=== PATIENT | female | born 1990 | race Caucasian/White ===

== ENCOUNTER 2016-05-26 02:12 | Day surgery (SDC) | payer MEDICAID ==
[2016-05-26] MEDS ORDERED: HYDROmorphone 1 MG/ML Syringe IVPUSH ONE ×2 (03:22→06:53)
[2016-05-26] MEDS ORDERED: Ondansetron 4 MG/2 ML SDV IVPUSH ONE (03:22)
[2016-05-26] MEDS ORDERED: Sodium Chloride 0.9% 1,000 ML IV SCH (03:30)
--- NOTE | 2016-05-26 03:30 | EDM.PDOC ---
ED HPI GI/ABDOMINAL - General Chief Complaint: Gastrointestinal Problem Stated Complaint: UPPER ABDOMINAL BULGE/PAINFUL Time Seen by Provider: 05/26/16 02:35 Source of Information: Reports: Patient, Family (Mother), RN notes reviewed History Limitations: Reports: No limitations - History of Present Illness INITIAL COMMENTS - FREE TEXT/NARRATIVE: The patient states that she developed a "bump" in her upper midline abdomen about 1.5 years ago. She saw an ER physician in [facility] around November 2014. No tests were done, but the patient was told that so long as she was able to push it down, not to worry. Today the patient was unable to push the bump down, and it is painful. No recent fever, nausea, vomiting, constipation, diarrhea, or urinary symptoms. The patient states that she cannot be . The patient does not have a PCP. Her last oral solid food was around 02:00 this AM. Her last oral liquid was also around 02:00. - Related Data Allergies/ADRs: Allergies Allergy/AdvReac Type Severity Reaction Status Date / Time No Known Allergies Allergy Verified 05/26/16 02:28 Home Meds: Home Meds . [No Known Home Meds] 05/26/16 [History] Past Medical History - Past Surgical History HEENT Surgical History: Reports: Oral surgery (Hir[place] teeth extraction) Social & Family History - Family History Family Medical History: Noncontributory - Tobacco Use Smoking Status *Q: Current Every Day Smoker Years of Tobacco use: 11 Packs/Tins Daily: 0.2 Packs/Tins Daily Comment: Down from 1 ppd - Alcohol Use Alcohol Use History: Yes Alcohol Use Frequency: Socially - Recreational Drug Use Recreational Drug Use: No - Living Situation & Occupation Living situation: Reports: single, with family (Son, parents) 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) ED ROS GENERAL - Review of Systems Review Of Systems: See Below Constitutional: Reports: no symptoms HEENT: Reports: No symptoms Respiratory: Reports: No Symptoms Cardiovascular: Reports: No symptoms Endocrine: Reports: no symptoms GI/Abdominal: Reports: No symptoms : Reports: no symptoms Musculoskeletal: Reports: no symptoms Skin: Reports: no symptoms Neurological: Reports: No Symptoms Psychiatric: Reports: No symptoms Hematologic/Lymphatic: Reports: no symptoms Immunologic: Reports: no symptoms ED EXAM, GI/ABD - Physical Exam Exam: See Below Exam Limited By: No limitations General Appearance: alert, WD/WN, no apparent distress Eyes: bilateral: normal appearance, EOMI Ears: normal external exam, hearing grossly normal Nose: normal inspection, no blood Throat/Mouth: Normal inspection, Normal lips, Normal voice, No airway compromise Head: atraumatic, normocephalic Neck: normal inspection, full range of motion Respiratory/Chest: no respiratory distress, lungs clear, normal breath sounds, no accessory muscle use Cardiovascular: normal peripheral pulses, regular rate, rhythm, no edema, no gallop, no JVD, no murmur, no rub GI/Abdominal: normal bowel sounds, soft, no organomegaly, no distention, no abnormal bruit, no mass, hernia (Ventral hernia about mcfp between the umbilicus and the xiphoid process. Tender to palpation, and I am unable to reduce it.) (Female) Exam: Deferred Rectal (Female) Exam: Deferred Back Exam: normal inspection, full range of motion, NT Extremities: normal inspection, normal range of motion, no pedal edema, normal capillary refill Neurological: alert, oriented, normal cognition, no motor/sensory deficits Psychiatric: normal affect Skin Exam: Warm, Dry, Intact, Normal color, No rash Lymphatic: no adenopathy Course - Vital Signs Last Recorded V/S: Last Vital Signs Temp 36.2 C 05/26/16 02:23 Pulse 91 05/26/16 02:23 Resp 16 05/26/16 02:23 BP 109/75 05/26/16 02:23 Pulse Ox 99 05/26/16 02:23 - Orders/Labs/Meds Orders: Active Orders 24 hr Category Date Time Status Sodium Chloride 0.9% [Normal Saline] 1,000 ml Med 05/26/16 03:30 Active IV ASDIRECTED Medication Orders Sodium Chloride (Normal Saline) 1,000 mls @ 150 mls/hr IV ASDIRECTED REJI Last Admin: 05/26/16 03:34 Dose: 150 mls/hr Labs: Laboratory Tests 05/26/16 05/26/16 05/26/16 Range/Units 03:35 03:35 04:35 WBC 9.94 (3.98-10.04) K/mm3 RBC 4.20 (3.98-5.22) M/mm3 Hgb 12.9 (11.2-15.7) gm/L Hct 37.8 (34.1-44.9) % MCV 90.0 (79.4-94.8) fl MCH 30.7 (25.6-32.2) pg MCHC 34.1 (32.2-35.5) g/dl RDW Std Deviation 43.5 (36.4-46.3) fL Plt Count 227 (182-369) K/mm3 MPV 11.2 (9.4-12.3) fl Neutrophils % (Manual) 40 (40-60) % Band Neutrophils % 0 (0-10) % Lymphocytes % (Manual) 46 H (20-40) % Atypical Lymphs % 0 % Monocytes % (Manual) 11 H (2-10) % Eosinophils % (Manual) 2 (0.7-5.8) % Basophils % (Manual) 1 (0.1-1.2) Platelet Estimate Adequate Plt Morphology Comment Normal RBC Morph Comment Normal Sodium 141 (136-145) mEq/L Potassium 3.6 (3.5-5.1) mEq/L Chloride 106 (98-107) mEq/L Carbon Dioxide 24 (21-32) mEq/L Anion Gap 14.6 (5-15) BUN 13 (7-18) mg/dL Creatinine 0.7 (0.55-1.02) mg/dL Est Cr Clr Drug Dosing 110.55 mL/min Estimated GFR (MDRD) > 60 (>60) mL/min BUN/Creatinine Ratio 18.6 H (14-18) Glucose 98 (74-106) mg/dL Calcium 8.6 (8.5-10.1) mg/dL Total Bilirubin 0.2 (0.2-1.0) mg/dL AST 11 L (15-37) U/L ALT 22 (14-59) U/L Alkaline Phosphatase 74 (46-116) U/L Total Protein 6.8 (6.4-8.2) g/dl Albumin 3.8 (3.4-5.0) g/dl Globulin 3.0 gm/dL Albumin/Globulin Ratio 1.3 (1-2) Lipase 463 H (73-393) U/L Urine Color (Yellow) Urine Appearance (Clear) Urine pH (5.0-8.0) Ur Specific [place] (1.005-1.030) Urine Protein (Negative) Urine Glucose (UA) (Negative) Urine Ketones (Negative) Urine Occult Blood (Negative) Urine Nitrite (Negative) Urine Bilirubin (Negative) Urine Urobilinogen (0.2-1.0) Ur Leukocyte Esterase (Negative) Urine RBC (0-5) /hpf Urine WBC (0-5) /hpf Ur Epithelial Cells (0-5) /hpf Amorphous Sediment (NOT SEEN) /hpf Urine Bacteria (FEW) /hpf Urine Mucus (FEW) /hpf Urine HCG, Qual Negative (NEGATIVE) 05/26/16 Range/Units 04:35 WBC (3.98-10.04) K/mm3 RBC (3.98-5.22) M/mm3 Hgb (11.2-15.7) gm/L Hct (34.1-44.9) % MCV (79.4-94.8) fl MCH (25.6-32.2) pg MCHC (32.2-35.5) g/dl RDW Std Deviation (36.4-46.3) fL Plt Count (182-369) K/mm3 MPV (9.4-12.3) fl Neutrophils % (Manual) (40-60) % Band Neutrophils % (0-10) % Lymphocytes % (Manual) (20-40) % Atypical Lymphs % % Monocytes % (Manual) (2-10) % Eosinophils % (Manual) (0.7-5.8) % Basophils % (Manual) (0.1-1.2) Platelet Estimate Plt Morphology Comment RBC Morph Comment Sodium (136-145) mEq/L Potassium (3.5-5.1) mEq/L Chloride (98-107) mEq/L Carbon Dioxide (21-32) mEq/L Anion Gap (5-15) BUN (7-18) mg/dL Creatinine (0.55-1.02) mg/dL Est Cr Clr Drug Dosing mL/min Estimated GFR (MDRD) (>60) mL/min BUN/Creatinine Ratio (14-18) Glucose (74-106) mg/dL Calcium (8.5-10.1) mg/dL Total Bilirubin (0.2-1.0) mg/dL AST (15-37) U/L ALT (14-59) U/L Alkaline Phosphatase (46-116) U/L Total Protein (6.4-8.2) g/dl Albumin (3.4-5.0) g/dl Globulin gm/dL Albumin/Globulin Ratio (1-2) Lipase (73-393) U/L Urine Color Yellow (Yellow) Urine Appearance Clear (Clear) Urine pH 6.5 (5.0-8.0) Ur Specific [place] > or = 1.030 (1.005-1.030) Urine Protein Negative (Negative) Urine Glucose (UA) Negative (Negative) Urine Ketones Negative (Negative) Urine Occult Blood 2+ H (Negative) Urine Nitrite Negative (Negative) Urine Bilirubin Negative (Negative) Urine Urobilinogen 0.2 (0.2-1.0) Ur Leukocyte Esterase Negative (Negative) Urine RBC 5-10 H (0-5) /hpf Urine WBC 0-5 (0-5) /hpf Ur Epithelial Cells 0-5 (0-5) /hpf Amorphous Sediment Many H (NOT SEEN) /hpf Urine Bacteria Few (FEW) /hpf Urine Mucus Few (FEW) /hpf Urine HCG, Qual (NEGATIVE) Meds: Medications Generic Name Dose Route Start Last Admin Trade Name Freq PRN Reason Stop Dose Admin Sodium Chloride 1,000 mls @ 150 mls/hr 05/26/16 03:30 05/26/16 03:34 Normal Saline IV 150 mls/hr ASDIRECTED REJI Administration Discontinued Medications Generic Name Dose Route Start Last Admin Trade Name Freq PRN Reason Stop Dose Admin Diatrizoate Meglum/Diatrizoate Sod 90 ml 05/26/16 06:04 05/26/16 06:05 Gastrografin 37% PO 05/26/16 06:05 90 ml ONETIME ONE Administration Hydromorphone HCl 1 mg 05/26/16 03:22 05/26/16 03:34 Dilaudid IVPUSH 05/26/16 03:23 1 mg ONETIME ONE Administration Iopamidol 100 ml 05/26/16 06:04 05/26/16 06:05 Isovue-300 (61%) IVPUSH 05/26/16 06:05 100 ml ONETIME ONE Administration Ondansetron HCl 4 mg 05/26/16 03:22 05/26/16 03:34 Zofran IVPUSH 05/26/16 03:23 4 mg ONETIME ONE Administration - Radiology Interpretation Free Text/Narrative:: CT of the abdomen and pelvis with oral and IV contrast is read by Dr. Rodriguez as: 1. Small anterior abdominal wall hernia at the level of the lower liver. This contains fat with mild increased density being seen in this area suspicious for mild incarceration of the fat resulting in mild inflammatory change. 2. Other normal findings as described above. - Re-Assessments/Exams Free Text/Narrative Re-Assessment/Exam: 05/26/16 06:[address] Avila at 06:35. She will come by the ED to evaluate the patient, with a plan of taking the patient to the operating room later today for herniorrhaphy. 05/26/16 06:42 The above was discussed with the patient and her mother. They are agreeable to going to the operating room. Departure - Departure Time of Disposition: 06:46 Disposition: DC/Tfer to [facility] Condition: fair Clinical Impression: Incarcerated ventral hernia - My Orders Last 24 Hours: My Active Orders 05/26/16 03:30 Sodium Chloride 0.9% [Normal Saline] 1,000 ml IV ASDIRECTED - Assessment/Plan Last 24 Hours: My Active Orders 05/26/16 03:30 Sodium Chloride 0.9% [Normal Saline] 1,000 ml IV ASDIRECTED
[2016-05-26] MEDS ORDERED: Iopamidol 612 MG/ML 100 ML Bottle IVPUSH ONE (06:04)
[2016-05-26] MEDS ORDERED: Diatrizoate Meglumine/Diatrizoate Sodium 37% 120 ML Bottle PO ONE (06:04)
--- NOTE | 2016-05-26 06:18 | CT ---
CT abdomen and pelvis Technique: Multiple axial sections were obtained from above the dome of the diaphragm inferiorly through the pubic symphysis. Intravenous and oral contrast was utilized. Delayed images were also obtained through the abdomen and pelvis. Comparison: No previous abdominal imaging. Findings: Small anterior abdominal wall hernia is identified at the level of the lower liver. This hernia opening measures approximately 6 mm and contains fat. Mild increased density is noted within the subcutaneous fat in the area of the hernia raising the possibility of mild incarceration of fat causing inflammatory change. No bowel is seen within or next to this hernia. Visualized lung bases are clear. Liver shows no focal parenchymal abnormality. Spleen appears within normal limits. Adrenal glands show no nodule. Kidneys show symmetric contrast enhancement without hydronephrosis or mass. Pancreas appears within normal limits. Gallbladder shows no calcified gallstones. Aorta shows no aneurysmal dilatation. No retroperitoneal adenopathy or mesenteric abnormalities are seen. No pelvic mass or adenopathy is seen. Delayed images shows contrast within the ureters and bladder. No bowel dilatation is seen. No free fluid is identified. Bone window settings were reviewed which appear within normal limits for the patient's age. Impression: 1. Small anterior abdominal wall hernia at the level of the lower liver. This contains fat with mild increased density being seen in this area suspicious for mild incarceration of the fat resulting in mild inflammatory change. 2. Other normal findings as described above. Diagnostic code #3
--- NOTE | 2016-05-26 08:02 | PCM.CONS ---
H&P History of Present Illness - General Date of Service: 05/26/16 Admit Problem/Dx: Admission Diagnosis/Problem Admission Diagnosis/Problem Hernia of anterior abdominal wall Source of Information: Patient History Limitations: Reports: No limitations - History of Present Illness Initial Comments - Free Text/Narative: 25 year old female with incarcerated epigastric hernia referred by Dr. Gonsales at [facility] ED. Presented this morning to ED at 0235, with a painful epigastric hernia. Reports she last ate at 2 AM, lasting to [address] of abdomen showed small anterior abdominal wall hernia the level of the lower liver. This contained fat with mild increase density being seen in the area suspicious for mild incarceration of fat resulting in mild inflammatory change.CBC within acceptable limits. CMP within acceptable limits. Lipase elevated at 463. UA showed occult blood and RBC. Urine HCG was negative. Patient reports she has had the hernia for 1.5 years. She reported it to an ED provider in [place] and told she could monitor. She reports she did not have an incident that precipitated noting the hernia initially. She would note it "pop" out during periods of stress. It was not painful up until yesterday. She reports she pulled something heavy yesterday, noted a lump that was firm and painful. She reports she tried laying down, she tried rubbing it and is heard. She reports that nothing seemed to help with the pain. She noted that the only position that was actually comfortable was when she was driving to the emergency department. She had some nausea due to the pain. She denies any vomiting, constipation, diarrhea, obstipation, or skin changes overlying the hernia. She denies any family history of colon cancer in first or second-degree relatives. She reports that her family members do have a history of several different types of cancer. She's never had a colonoscopy or EGD. She reports that the hernia was the size of the mouse or bouncy ball when she arrived to the emergency room. She reports that there was an attempt to reduce the hernia which was quite painful for her and she reports that in the size is actually significantly decreased from her initial arrival to the emergency department. She has had pain medication and this has helped somewhat with pain. Symptom Onset Date: 05/25/16 Duration of Symptoms: Reports: Constant Location: Reports: abdomen Middle Abdomen Pain Score (Numeric/FACES): 3 - Related Data Allergies/Adverse Reactions: Allergies Allergy/AdvReac Type Severity Reaction Status Date / Time No Known Allergies Allergy Verified 05/26/16 02:28 Home Medications: Home Meds . [No Known Home Meds] 05/26/16 [History] Past Medical History - Past Health History Medical/Surgical History: Denies Medical/Surgical History Genitourinary History: Reports: UTI, recurrent Other OB/BYN History: Right breast lipoma evaluated in [facility] - Past Surgical History HEENT Surgical History: Reports: Oral surgery ([place] teeth extraction) Social & Family History - Family History Other Family History: Mother: Sleep apnea, thyroid disease, hypertension Father: Hernia Sister: Anxiety Son: Gastroischesis, WPW, yeast infection from central line, sepsis from central line, blood transfusion, blood clot at site of PICC line Maternal grandmother colon Escherichia coli, rheumatoid arthritis - Tobacco Use Smoking Status *Q: Current Every Day Smoker Years of Tobacco use: 11 Packs/Tins Daily: 0.2 - Recreational Drug Use Recreational Drug Use: No - Living Situation & Occupation Living situation: Reports: single, with family (Son, parents) 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 Denies: chest pain, palpitations, dyspnea on exertion, orthopnea, PND, edema, lightheadedness, claudication Gastrointestinal: Reports: Abdominal pain (epigastric; see hpi), Nausea. Denies : Anorexia, Black stool, Bloody stool, Constipation, Diarrhea, Distension, Hematochezia, Melena, Vomiting Genitourinary: Reports: no symptoms Musculoskeletal: Reports: no symptoms Skin: Reports: no symptoms, other (multiple nevi; nevi to back was told to watch ; this has changed ) Psychiatric: Reports: no symptoms Neurological: Reports: No Symptoms, Other (reports when she lays down she has noted hand and feet numbness lately). Denies: Dizziness, Headache Hematologic/Lymphatic: Reports: no symptoms. Denies: anemia, easy bleeding, easy bruising Immunologic: Reports: no symptoms Exam - Exam Exam: See Below - Vital Signs Vital Signs: Last Vital Signs Temp 97.2 F 05/26/16 02:23 Pulse 91 05/26/16 02:23 Resp 16 05/26/16 02:23 BP 109/75 05/26/16 02:23 Pulse Ox 99 05/26/16 02:23 Weight: 61.235 kg - Exam General: alert, oriented, cooperative. No: mild distress HEENT: Conjunctiva clear, Hearing intact, Mucosa moist & pink Neck: supple Lungs: Clear to auscultation, Normal respiratory effort Cardiovascular: regular rate, regular rhythm, normal S1, normal S2. No: systolic murmur, diastolic murmur Abdomen: normal bowel sounds, soft, guarding, tenderness, hernia (epigastric 2- 3 cm in size, very tender to light touch, reduction not attempted due to pain and prior reduction attempted per ED staff. NO overylying skin change. Hernia is semi-firm. ). No: distention Back Exam: normal inspection Extremities: normal inspection, normal pulses. No: clubbing, cyanosis, calf tenderness, edema Skin: warm, dry, intact (muliple nevi to back and chest wall; left upper back > 5mm brown nevus, raised with irregular border. ) Neurological: normal speech. No: focal deficit Neuro Extensive - Mental Status: alert, oriented x3, normal mood/affect, normal cognition, memory intact Psychiatric: alert, normal affect, normal mood - Patient Data Lab Results last 24 hrs: Laboratory Results - last 24 hr 05/26/16 05/26/16 05/26/16 Range/Units 03:35 03:35 04:35 WBC 9.94 (3.98-10.04) K/mm3 RBC 4.20 (3.98-5.22) M/mm3 Hgb 12.9 (11.2-15.7) gm/L Hct 37.8 (34.1-44.9) % MCV 90.0 (79.4-94.8) fl MCH 30.7 (25.6-32.2) pg MCHC 34.1 (32.2-35.5) g/dl RDW Std Deviation 43.5 (36.4-46.3) fL Plt Count 227 (182-369) K/mm3 MPV 11.2 (9.4-12.3) fl Neutrophils % (Manual) 40 (40-60) % Band Neutrophils % 0 (0-10) % Lymphocytes % (Manual) 46 H (20-40) % Atypical Lymphs % 0 % Monocytes % (Manual) 11 H (2-10) % Eosinophils % (Manual) 2 (0.7-5.8) % Basophils % (Manual) 1 (0.1-1.2) Platelet Estimate Adequate Plt Morphology Comment Normal RBC Morph Comment Normal Sodium 141 (136-145) mEq/L Potassium 3.6 (3.5-5.1) mEq/L Chloride 106 (98-107) mEq/L Carbon Dioxide 24 (21-32) mEq/L Anion Gap 14.6 (5-15) BUN 13 (7-18) mg/dL Creatinine 0.7 (0.55-1.02) mg/dL Est Cr Clr Drug Dosing 110.55 mL/min Estimated GFR (MDRD) > 60 (>60) mL/min BUN/Creatinine Ratio 18.6 H (14-18) Glucose 98 (74-106) mg/dL Calcium 8.6 (8.5-10.1) mg/dL Total Bilirubin 0.2 (0.2-1.0) mg/dL AST 11 L (15-37) U/L ALT 22 (14-59) U/L Alkaline Phosphatase 74 (46-116) U/L Total Protein 6.8 (6.4-8.2) g/dl Albumin 3.8 (3.4-5.0) g/dl Globulin 3.0 gm/dL Albumin/Globulin Ratio 1.3 (1-2) Lipase 463 H (73-393) U/L Urine Color (Yellow) Urine Appearance (Clear) Urine pH (5.0-8.0) Ur Specific [place] (1.005-1.030) Urine Protein (Negative) Urine Glucose (UA) (Negative) Urine Ketones (Negative) Urine Occult Blood (Negative) Urine Nitrite (Negative) Urine Bilirubin (Negative) Urine Urobilinogen (0.2-1.0) Ur Leukocyte Esterase (Negative) Urine RBC (0-5) /hpf Urine WBC (0-5) /hpf Ur Epithelial Cells (0-5) /hpf Amorphous Sediment (NOT SEEN) /hpf Urine Bacteria (FEW) /hpf Urine Mucus (FEW) /hpf Urine HCG, Qual Negative (NEGATIVE) 05/26/16 Range/Units 04:35 WBC (3.98-10.04) K/mm3 RBC (3.98-5.22) M/mm3 Hgb (11.2-15.7) gm/L Hct (34.1-44.9) % MCV (79.4-94.8) fl MCH (25.6-32.2) pg MCHC (32.2-35.5) g/dl RDW Std Deviation (36.4-46.3) fL Plt Count (182-369) K/mm3 MPV (9.4-12.3) fl Neutrophils % (Manual) (40-60) % Band Neutrophils % (0-10) % Lymphocytes % (Manual) (20-40) % Atypical Lymphs % % Monocytes % (Manual) (2-10) % Eosinophils % (Manual) (0.7-5.8) % Basophils % (Manual) (0.1-1.2) Platelet Estimate Plt Morphology Comment RBC Morph Comment Sodium (136-145) mEq/L Potassium (3.5-5.1) mEq/L Chloride (98-107) mEq/L Carbon Dioxide (21-32) mEq/L Anion Gap (5-15) BUN (7-18) mg/dL Creatinine (0.55-1.02) mg/dL Est Cr Clr Drug Dosing mL/min Estimated GFR (MDRD) (>60) mL/min BUN/Creatinine Ratio (14-18) Glucose (74-106) mg/dL Calcium (8.5-10.1) mg/dL Total Bilirubin (0.2-1.0) mg/dL AST (15-37) U/L ALT (14-59) U/L Alkaline Phosphatase (46-116) U/L Total Protein (6.4-8.2) g/dl Albumin (3.4-5.0) g/dl Globulin gm/dL Albumin/Globulin Ratio (1-2) Lipase (73-393) U/L Urine Color Yellow (Yellow) Urine Appearance Clear (Clear) Urine pH 6.5 (5.0-8.0) Ur Specific [place] > or = 1.030 (1.005-1.030) Urine Protein Negative (Negative) Urine Glucose (UA) Negative (Negative) Urine Ketones Negative (Negative) Urine Occult Blood 2+ H (Negative) Urine Nitrite Negative (Negative) Urine Bilirubin Negative (Negative) Urine Urobilinogen 0.2 (0.2-1.0) Ur Leukocyte Esterase Negative (Negative) Urine RBC 5-10 H (0-5) /hpf Urine WBC 0-5 (0-5) /hpf Ur Epithelial Cells 0-5 (0-5) /hpf Amorphous Sediment Many H (NOT SEEN) /hpf Urine Bacteria Few (FEW) /hpf Urine Mucus Few (FEW) /hpf Urine HCG, Qual (NEGATIVE) Result Diagrams: 05/26/16 03:35 05/26/16 03:35 Consult PN Assessment/Plan Problem List Initiated/Reviewed/Updated: Yes Plan: 25 year old female with incarcerated epigastric hernia, need for open primary epigastric hernia repair. We discussed open primary epigastric hernia repair. We reviewed risks of the procedure including pain, bleeding, need for additional procedures, damage to surrounding structures, hernia recurrence, mesh or incisional infection, damage to other intra-abdominal structures. We also reviewed the signs and symptoms of incarceration and strangulation of hernias to be watchful for. Post-operative instructions of no lifting greater than 10 pounds for 6 weeks was reviewed. Informed consent was obtained. This patient was evaluated with Dr. Rachel Avila. Plan formulated above. Serina Harris NP scribing for Dr. Rachel Avila
--- NOTE | 2016-05-26 08:10 | PCM.PREANE ---
Preanesthetic Assessment - Physical Assessment O2 Sat by Pulse Oximetry: 99 Respiratory Rate: 16 Vital Signs: Last Vital Signs Temp 36.2 C 05/26/16 02:23 Pulse 91 05/26/16 02:23 Resp 16 05/26/16 02:23 BP 109/75 05/26/16 02:23 Pulse Ox 99 05/26/16 02:23 Height: 1.65 m Weight: 61.235 kg - Lab Values: Laboratory Last Values WBC 9.94 K/mm3 (3.98-10.04) 05/26/16 03:35 RBC 4.20 M/mm3 (3.98-5.22) 05/26/16 03:35 Hgb 12.9 gm/L (11.2-15.7) 05/26/16 03:35 Hct 37.8 % (34.1-44.9) 05/26/16 03:35 MCV 90.0 fl (79.4-94.8) 05/26/16 03:35 MCH 30.7 pg (25.6-32.2) 05/26/16 03:35 MCHC 34.1 g/dl (32.2-35.5) 05/26/16 03:35 RDW Std Deviation 43.5 fL (36.4-46.3) 05/26/16 03:35 Plt Count 227 K/mm3 (182-369) 05/26/16 03:35 MPV 11.2 fl (9.4-12.3) 05/26/16 03:35 Neutrophils % (Manual) 40 % (40-60) 05/26/16 03:35 Band Neutrophils % 0 % (0-10) 05/26/16 03:35 Lymphocytes % (Manual) 46 % (20-40) H 05/26/16 03:35 Atypical Lymphs % 0 % 05/26/16 03:35 Monocytes % (Manual) 11 % (2-10) H 05/26/16 03:35 Eosinophils % (Manual) 2 % (0.7-5.8) 05/26/16 03:35 Basophils % (Manual) 1 (0.1-1.2) 05/26/16 03:35 Platelet Estimate Adequate 05/26/16 03:35 Plt Morphology Comment Normal 05/26/16 03:35 RBC Morph Comment Normal 05/26/16 03:35 Sodium 141 mEq/L (136-145) 05/26/16 03:35 Potassium 3.6 mEq/L (3.5-5.1) 05/26/16 03:35 Chloride 106 mEq/L (98-107) 05/26/16 03:35 Carbon Dioxide 24 mEq/L (21-32) 05/26/16 03:35 Anion Gap 14.6 (5-15) 05/26/16 03:35 BUN 13 mg/dL (7-18) 05/26/16 03:35 Creatinine 0.7 mg/dL (0.55-1.02) 05/26/16 03:35 Est Cr Clr Drug Dosing 110.55 mL/min 05/26/16 03:35 Estimated GFR (MDRD) > 60 mL/min (>60) 05/26/16 03:35 BUN/Creatinine Ratio 18.6 (14-18) H 05/26/16 03:35 Glucose 98 mg/dL (74-106) 05/26/16 03:35 Calcium 8.6 mg/dL (8.5-10.1) 05/26/16 03:35 Total Bilirubin 0.2 mg/dL (0.2-1.0) 05/26/16 03:35 AST 11 U/L (15-37) L 05/26/16 03:35 ALT 22 U/L (14-59) 05/26/16 03:35 Alkaline Phosphatase 74 U/L (46-116) 05/26/16 03:35 Total Protein 6.8 g/dl (6.4-8.2) 05/26/16 03:35 Albumin 3.8 g/dl (3.4-5.0) 05/26/16 03:35 Globulin 3.0 gm/dL 05/26/16 03:35 Albumin/Globulin Ratio 1.3 (1-2) 05/26/16 03:35 Lipase 463 U/L (73-393) H 05/26/16 03:35 Urine Color Yellow (Yellow) 05/26/16 04:35 Urine Appearance Clear (Clear) 05/26/16 04:35 Urine pH 6.5 (5.0-8.0) 05/26/16 04:35 Ur Specific [place] > or = 1.030 (1.005-1.030) 05/26/16 04:35 Urine Protein Negative (Negative) 05/26/16 04:35 Urine Glucose (UA) Negative (Negative) 05/26/16 04:35 Urine Ketones Negative (Negative) 05/26/16 04:35 Urine Occult Blood 2+ (Negative) H 05/26/16 04:35 Urine Nitrite Negative (Negative) 05/26/16 04:35 Urine Bilirubin Negative (Negative) 05/26/16 04:35 Urine Urobilinogen 0.2 (0.2-1.0) 05/26/16 04:35 Ur Leukocyte Esterase Negative (Negative) 05/26/16 04:35 Urine RBC 5-10 /hpf (0-5) H 05/26/16 04:35 Urine WBC 0-5 /hpf (0-5) 05/26/16 04:35 Ur Epithelial Cells 0-5 /hpf (0-5) 05/26/16 04:35 Amorphous Sediment Many /hpf (NOT SEEN) H 05/26/16 04:35 Urine Bacteria Few /hpf (FEW) 05/26/16 04:35 Urine Mucus Few /hpf (FEW) 05/26/16 04:35 Urine HCG, Qual Negative (NEGATIVE) 05/26/16 04:35 - Allergies Allergies/Adverse Reactions: Allergies Allergy/AdvReac Type Severity Reaction Status Date / Time No Known Allergies Allergy Verified 05/26/16 02:28 PreAnesthesia Questionnaire - Past Health History Medical/Surgical History: Denies Medical/Surgical History Genitourinary History: Reports: UTI, recurrent - Past Surgical History HEENT Surgical History: Reports: Oral surgery ([place] teeth extraction) - SUBSTANCE USE Smoking Status *Q: Current Every Day Smoker (3-4 cigs/day for 11 years) Tobacco Use Within Last Twelve Months: Cigarettes Second Hand Smoke Exposure: No Recreational Drug Use History: No - HOME MEDS Home Medications: Home Meds . [No Known Home Meds] 05/26/16 [History] - CURRENT (IN HOUSE) MEDS Current Meds: Current Medications Sodium Chloride (Normal Saline) 1,000 mls @ 150 mls/hr IV ASDIRECTED REJI Last Admin: 05/26/16 03:34 Dose: 150 mls/hr Discontinued Medications Diatrizoate Meglum/Diatrizoate Sod (Gastrografin 37%) 90 ml PO ONETIME ONE Stop: 05/26/16 06:05 Last Admin: 05/26/16 06:05 Dose: 90 ml Hydromorphone HCl (Dilaudid) 1 mg IVPUSH ONETIME ONE Stop: 05/26/16 03:23 Last Admin: 05/26/16 03:34 Dose: 1 mg Hydromorphone HCl (Dilaudid) 1 mg IVPUSH ONETIME ONE Stop: 05/26/16 06:54 Last Admin: 05/26/16 07:02 Dose: 1 mg Iopamidol (Isovue-300 (61%)) 100 ml IVPUSH ONETIME ONE Stop: 05/26/16 06:05 Last Admin: 05/26/16 06:05 Dose: 100 ml Ondansetron HCl (Zofran) 4 mg IVPUSH ONETIME ONE Stop: 05/26/16 03:23 Last Admin: 05/26/16 03:34 Dose: 4 mg Preanesthetic Assessment - ANESTHESIA/TRANSFUSION/FAMILY HX Anesthesia/Transfusion History: No Prior Transfusion(s), Prior Anesthesia ( wisdom teeth extraction- tolerated well) Type of Anesthesia Reaction: Reports: Unknown Family History of Anesthesia Reaction: No Intubation History: Unknown Type of Transfusion Reactions: Reports: Unknown - REVIEW OF SYSTEMS Constitutional: Reports: no symptoms SHOWER ATTENDANT: Reports: no symptoms Respiratory: Reports: no symptoms Cardiovascular: Reports: no symptoms GI: Reports: no symptoms Other: Reports: Easy Bruising, Depression (not currently taking medication now) , Anxiety - PHYSICAL ASSESSMENT O2 Sat by Pulse Oximetry: 99 RR: 16 Vital Signs: Last Vital Signs Temp 36.2 C 05/26/16 02:23 Pulse 91 05/26/16 02:23 Resp 16 05/26/16 02:23 BP 109/75 05/26/16 02:23 Pulse Ox 99 05/26/16 02:23 Height: 1.65 m Weight: 61.235 kg NPO Status Date: 05/26/16 NPO Status Time: 02:00 ASA Class: 2E Mental Status: Alert & Oriented x3 Airway Class: Mallampati = 1 Dentition: Reports: Normal Dentition Thyro-Mental Finger Breadths: 3 Mouth Opening Finger Breadths: 3 ROM/Head Extension: Full Respiratory Status: lungs clear to auscultation bilaterally Cardiovascular Status: regular rate & rhythm, normal S1, S2, no murmur, blood pressure WNL - LAB Values: Laboratory Last Values WBC 9.94 K/mm3 (3.98-10.04) 05/26/16 03:35 RBC 4.20 M/mm3 (3.98-5.22) 05/26/16 03:35 Hgb 12.9 gm/L (11.2-15.7) 05/26/16 03:35 Hct 37.8 % (34.1-44.9) 05/26/16 03:35 MCV 90.0 fl (79.4-94.8) 05/26/16 03:35 MCH 30.7 pg (25.6-32.2) 05/26/16 03:35 MCHC 34.1 g/dl (32.2-35.5) 05/26/16 03:35 RDW Std Deviation 43.5 fL (36.4-46.3) 05/26/16 03:35 Plt Count 227 K/mm3 (182-369) 05/26/16 03:35 MPV 11.2 fl (9.4-12.3) 05/26/16 03:35 Neutrophils % (Manual) 40 % (40-60) 05/26/16 03:35 Band Neutrophils % 0 % (0-10) 05/26/16 03:35 Lymphocytes % (Manual) 46 % (20-40) H 05/26/16 03:35 Atypical Lymphs % 0 % 05/26/16 03:35 Monocytes % (Manual) 11 % (2-10) H 05/26/16 03:35 Eosinophils % (Manual) 2 % (0.7-5.8) 05/26/16 03:35 Basophils % (Manual) 1 (0.1-1.2) 05/26/16 03:35 Platelet Estimate Adequate 05/26/16 03:35 Plt Morphology Comment Normal 05/26/16 03:35 RBC Morph Comment Normal 05/26/16 03:35 Sodium 141 mEq/L (136-145) 05/26/16 03:35 Potassium 3.6 mEq/L (3.5-5.1) 05/26/16 03:35 Chloride 106 mEq/L (98-107) 05/26/16 03:35 Carbon Dioxide 24 mEq/L (21-32) 05/26/16 03:35 Anion Gap 14.6 (5-15) 05/26/16 03:35 BUN 13 mg/dL (7-18) 05/26/16 03:35 Creatinine 0.7 mg/dL (0.55-1.02) 05/26/16 03:35 Est Cr Clr Drug Dosing 110.55 mL/min 05/26/16 03:35 Estimated GFR (MDRD) > 60 mL/min (>60) 05/26/16 03:35 BUN/Creatinine Ratio 18.6 (14-18) H 05/26/16 03:35 Glucose 98 mg/dL (74-106) 05/26/16 03:35 Calcium 8.6 mg/dL (8.5-10.1) 05/26/16 03:35 Total Bilirubin 0.2 mg/dL (0.2-1.0) 05/26/16 03:35 AST 11 U/L (15-37) L 05/26/16 03:35 ALT 22 U/L (14-59) 05/26/16 03:35 Alkaline Phosphatase 74 U/L (46-116) 05/26/16 03:35 Total Protein 6.8 g/dl (6.4-8.2) 05/26/16 03:35 Albumin 3.8 g/dl (3.4-5.0) 05/26/16 03:35 Globulin 3.0 gm/dL 05/26/16 03:35 Albumin/Globulin Ratio 1.3 (1-2) 05/26/16 03:35 Lipase 463 U/L (73-393) H 05/26/16 03:35 Urine Color Yellow (Yellow) 05/26/16 04:35 Urine Appearance Clear (Clear) 05/26/16 04:35 Urine pH 6.5 (5.0-8.0) 05/26/16 04:35 Ur Specific [place] > or = 1.030 (1.005-1.030) 05/26/16 04:35 Urine Protein Negative (Negative) 05/26/16 04:35 Urine Glucose (UA) Negative (Negative) 05/26/16 04:35 Urine Ketones Negative (Negative) 05/26/16 04:35 Urine Occult Blood 2+ (Negative) H 05/26/16 04:35 Urine Nitrite Negative (Negative) 05/26/16 04:35 Urine Bilirubin Negative (Negative) 05/26/16 04:35 Urine Urobilinogen 0.2 (0.2-1.0) 05/26/16 04:35 Ur Leukocyte Esterase Negative (Negative) 05/26/16 04:35 Urine RBC 5-10 /hpf (0-5) H 05/26/16 04:35 Urine WBC 0-5 /hpf (0-5) 05/26/16 04:35 Ur Epithelial Cells 0-5 /hpf (0-5) 05/26/16 04:35 Amorphous Sediment Many /hpf (NOT SEEN) H 05/26/16 04:35 Urine Bacteria Few /hpf (FEW) 05/26/16 04:35 Urine Mucus Few /hpf (FEW) 05/26/16 04:35 Urine HCG, Qual Negative (NEGATIVE) 05/26/16 04:35 - ALLERGIES Allergies/Adverse Reactions: Allergies Allergy/AdvReac Type Severity Reaction Status Date / Time No Known Allergies Allergy Verified 05/26/16 02:28 - BLOOD Blood Available: No Product(s) Available: None - ANESTHESIA PLAN Preop Beta Vesta: No Anesthesia Type Planned: General Anesthesia - ACKNOWLEDGEMENTS Pt an Appropriate Candidate for the Planned Anesthesia: Yes Alternatives and Risks of Anesthesia Discussed w Pt/Guardian: Yes Pt/Guardian Understands and Agrees with Anesthesia Plan: Yes
[2016-05-26] MEDS ORDERED: Lidocaine 1% 6 ML ONE (08:26)
[2016-05-26] MEDS ORDERED: Dexamethasone 4 MG/ML 5 ML MDV ONE (08:26)
[2016-05-26] MEDS ORDERED: Lactated Ringers 1,000 ML ONE (08:26)
[2016-05-26] MEDS ORDERED: Rocuronium 50 MG/5 ML Vial ONE (08:26)
[2016-05-26] MEDS ORDERED: Ondansetron 4 MG/2 ML SDV ONE (08:26)
[2016-05-26] MEDS ORDERED: Midazolam 1 MG/ML 2 ML SDV ONE (08:27)
[2016-05-26] MEDS ORDERED: Propofol 200 MG/20 ML SDV ONE (08:27)
[2016-05-26] MEDS ORDERED: fentaNYL 250 MCG/5 ML SDV ONE (08:27)
[2016-05-26] MEDS ORDERED: Bupivacaine 0.5%/EPINEPHrine 1:200,000 50 ML MDV ONE (08:33)
[2016-05-26] MEDS ORDERED: Lidocaine 1% with EPINEPHrine 1:100,000 20 ML MDV ONE (08:33)
[2016-05-26] MEDS ORDERED: fentaNYL 100 MCG/2 ML SDV ONE (08:39)
[2016-05-26] MEDS ORDERED: Midazolam 1 MG/ML 2 ML SDV IVPUSH PRN (09:38)
[2016-05-26] MEDS ORDERED: diphenhydrAMINE 50 MG/ML SDV IVPUSH PRN (09:38)
[2016-05-26] MEDS ORDERED: Neostigmine Methylsulfate 1 MG/ML 5 ML Syringe ONE (09:46)
--- NOTE | 2016-05-26 10:01 | PCM.POSTAN ---
POST ANESTHESIA ASSESSMENT - MENTAL STATUS Mental Status: alert - VITAL SIGNS Pulse Rate: 100 SaO2: 100 Resp Rate: 19 Blood Pressure: 115/70 Temperature: 37.1 C - RESPIRATORY Respiratory Status: respiratory rate WNL, airway patent, O2 saturation stable - CARDIOVASCULAR CV Status: pulse rate WNL, blood pressure stable - GASTROINTESTINAL GI Status: no symptoms - POST OP HYDRATION Hydration Status: adequate & stable
--- NOTE | 2016-05-26 10:06 | PCM.OPNOTE ---
- General Post-Op/Procedure Note Date of Surgery/Procedure: 05/26/16 Operative Procedure(s): Open repair of incarcerated epigastric hernia Pre Op Diagnosis: Acutely incarcerated epigastric hernia Post-Op Diagnosis: Same Anesthesia Technique: General ET tube, Local Primary Surgeon: Rachel Avila Anesthesia Provider: Debby Gordillo Fluid Replacement, Intraop: 1,300 (mL crystalloid ) EBL in mLs: 1 Complications: None Condition: Good Free Text/Narrative:: INDICATION FOR PROCEDURE: The patient is a 25-year-old woman who was referred to me by Dr. Flako Gonsales in the emergency department for evaluation of an acutely incarcerated epigastric hernia. This was very painful for the patient. Immediate surgical remedy was discussed with the patient. Due to the small size of the hernia on CT scan, I discussed with the patient performing a primary repair. Risks and benefits of the procedure been discussed with the patient, she found these risks acceptable and agreed to proceed. DESCRIPTION OF PROCEDURE: The patient was taken to the operating room and placed in the supine position. Sequential compressive devices were placed on the bilateral lower extremities. Preoperative antibiotics had been administered as per protocol. The abdomen was prepped and draped in usual sterile fashion after induction of general endotracheal anesthesia. The incarcerated fat within the hernia defect was easily palpable. A vertical midline incision was made directly over this measuring about 3 cm after first injecting local anesthetic. Dissection was carried down through the subcutaneous tissue using electrocautery until the incarcerated fat was encountered. This was dissected from the surrounding tissue. A suture ligature of 0 Vicryl was placed at the base of the incarcerated fat. The incarcerated fat was then was then amputated using electrocautery. The intra- abdominal fat was then allowed to retract through the hernia defect back into the abdomen. The hernia defect itself measured about 0.5-1 cm. Hemostasis was obtained. The subcutaneous fat was closed using a [id number] 0 Vicryl suture. The subcutaneous tissues were reapproximated using a running 3-0 Vicryl suture. The skin was then closed using running subcuticular 4-0 Monocryl suture. Dermabond was applied over the skin as a dressing. The patient was awakened from anesthesia and transferred to recovery room in stable condition having tolerated the procedure well. Sponge and his white counts reported correct at the end of the case. POSTOPERATIVE PLAN: I discussed with the patient's friend my intraoperative findings and recommendations. A prescription for Percocet has been provided, # 15. She is also been provided with a prescription for Zofran ODT and senna S. She should followup in the clinic in approximately 2 weeks. She is not lift greater than 20 pounds for the next 4 weeks. She is to call the office with any questions or concerns.
--- NOTE | 2016-05-26 10:49 | PCM48HPAN ---
Post Anesthesia Note - EVALUATION WITHIN 48HRS OF ANESTHETIC Vital Signs in Normal Range: Yes Patient Participated in Evaluation: Yes Respiratory Function Stable: Yes Airway Patent: Yes Cardiovascular Function Stable: Yes Hydration Status Stable: Yes Pain Control Satisfactory: Yes Nausea and Vomiting Control Satisfactory: Yes Mental Status Recovered: Yes
[2016-05-26] MEDS ORDERED: HYDROmorphone 0.5 MG/0.5 ML Syringe IVPUSH PRN (10:50)
[2016-05-26] MEDS ORDERED: fentaNYL 100 MCG/2 ML SDV IVPUSH PRN (10:50)
[2016-05-26] MEDS ORDERED: Acetaminophen/oxyCODONE 325-5 MG Tab PO SCH (11:00)
[2016-05-26 11:10] VITALS: BP 105/72
== END 2016-05-26 11:44 | disposition home or self-care (01) ==
LOC: JD.ED 02:12 → JD.SDS 06:50
PROVIDERS: ATTEND Surgery
DX: K43.6 Other and unspecified ventral hernia with obstruction, without gangrene (principal); Z79.899 Other long term (current) drug therapy; F17.210 Nicotine dependence, cigarettes, uncomplicated; Z98.890 Other specified postprocedural states
CPT/HCPCS: 36415; 49572; 74177; 80053; 81001; 81025; 83690; 85025; 96361; 96374; 96375; 96376; 99285; A9270; J1100; J1170; J2250; J2405; J2710; J3010; J7040; J7120; Q9963; Q9967; 00750; J2704

== ENCOUNTER 2016-10-17 02:36 | Emergency (ER) | payer MEDICAID ==
[2016-10-17 02:51] VITALS: BP 117/61
--- NOTE | 2016-10-17 02:53 | EDM.PDOC ---
ED HPI GENERAL MEDICAL PROBLEM - General Chief Complaint: Abdominal Pain Stated Complaint: POSS REOCCURANCE OF HERNIA Time Seen by Provider: 10/17/16 02:44 Source of Information: Reports: Patient History Limitations: Reports: No Limitations - History of Present Illness INITIAL COMMENTS - FREE TEXT/NARRATIVE: This is a 25-year-old female. Back in May she had a ventral hernia that was strangulated and had surgery and repair. She has been doing fine until about 3 or 4 days ago she started having increasing upper abdominal pain just gradually got worse and worse. This morning she awoke with severe abdominal discomfort and he comes to the ER for evaluation. Some nausea but no vomiting or diarrhea. She's noted over the last few days and they're certain things that she eats it aggravates her abdominal pain. She has no lower abdominal pain no urinary symptoms no fever no chills. She does not have a history of gallbladder problems and no history of ulcers. Abdomen Pain Score (Numeric/FACES): 8 - Related Data Allergies Allergy/AdvReac Type Severity Reaction Status Date / Time No Known Allergies Allergy Verified 10/17/16 02:52 Home Meds: Home Meds Dicyclomine [Bentyl] 20 mg PO TID PRN #12 tab 10/17/16 [Rx] Past Medical History - Past Health History Medical/Surgical History: Denies Medical/Surgical History Genitourinary History: Reports: UTI, Recurrent Other OB/BYN History: Right breast lipoma evaluated in [facility] - Past Surgical History HEENT Surgical History: Reports: Oral Surgery Social & Family History - Family History Family Medical History: Noncontributory - Tobacco Use Smoking Status *Q: Current Every Day Smoker Years of Tobacco use: 11 Packs/Tins Daily: 0.2 Second Hand Smoke Exposure: No - Recreational Drug Use Recreational Drug Use: No - Living Situation & Occupation Living situation: Reports: Single, with Family Occupation: Employed ED ROS GENERAL - Review of Systems Review Of Systems: See Below Constitutional: Denies: Fever, Chills HEENT: Reports: No Symptoms Respiratory: Reports: No Symptoms Cardiovascular: Reports: No Symptoms Endocrine: Reports: No Symptoms GI/Abdominal: Reports: Abdominal Pain, Nausea. Denies: Diarrhea, Vomiting : Reports: No Symptoms Musculoskeletal: Reports: No Symptoms Skin: Reports: No Symptoms Neurological: Reports: No Symptoms Psychiatric: Reports: No Symptoms Hematologic/Lymphatic: Reports: No Symptoms ED EXAM, GI/ABD - Physical Exam Exam: See Below Exam Limited By: No Limitations General Appearance: Alert, WD/WN, Mild Distress Eyes: Bilateral: Normal Appearance Ears: Normal External Exam Nose: Normal Inspection Throat/Mouth: Normal Inspection, Normal Lips, Normal Voice Head: Normocephalic Neck: Supple Respiratory/Chest: No Respiratory Distress, Lungs Clear, Normal Breath Sounds Cardiovascular: Regular Rate, Rhythm, No Murmur GI/Abdominal Exam: Soft, Other (She is tender all across the upper abdomen but more so in the right upper quadrant with a positive Frances sign, the lower abdomen is nontender on palpation, the midline incision is healed very well do not feel any bumps or masses underneath it and it is not significantly more tender over the incision line in any other place in the upper abdomen, bowel sounds are decreased, no rebound no rigidity) Back Exam: Full Range of Motion Extremities: Normal Inspection, Normal Range of Motion Neurological: Alert, Oriented Psychiatric: Anxious Skin Exam: Warm, Dry Course - Vital Signs Last Recorded V/S: Last Vital Signs Temp 98.6 F 10/17/16 02:46 Pulse 120 H 10/17/16 02:46 Resp 18 10/17/16 02:46 BP 117/61 10/17/16 02:46 Pulse Ox 100 10/17/16 02:46 - Orders/Labs/Meds Orders: Active Orders 24 hr Category Date Time Status Abdomen Ltd [US] Stat Exams 10/17/16 03:34 Taken Abdomen Pelvis w Cont [CT] Stat Exams 10/17/16 04:56 Taken Acetaminophen/HYDROcodone [[place] 325-5 MG] Med 10/17/16 07:37 Once 1 tab PO ONETIME ONE Sodium Chloride 0.9% [Saline Flush] Med 10/17/16 06:39 Active 10 ml FLUSH ONETIME PRN Medication Orders Sodium Chloride (Saline Flush) 10 ml FLUSH ONETIME PRN PRN Reason: IV FLUSH Last Admin: 10/17/16 06:50 Dose: 10 ml Labs: Laboratory Tests 10/17/16 10/17/16 Range/Units 03:21 03:21 WBC 5.60 (3.98-10.04) K/mm3 RBC 4.29 (3.98-5.22) M/mm3 Hgb 13.0 (11.2-15.7) gm/L Hct 39.1 (34.1-44.9) % MCV 91.1 (79.4-94.8) fl MCH 30.3 (25.6-32.2) pg MCHC 33.2 (32.2-35.5) g/dl RDW Std Deviation 41.9 (36.4-46.3) fL Plt Count 181 L (182-369) K/mm3 MPV 11.4 (9.4-12.3) fl Neut % (Auto) 56.6 (34.0-71.1) % Lymph % (Auto) 28.2 (19.3-51.7) % Hard[place] % (Auto) 12.1 (4.7-12.5) % Eos % (Auto) 2.0 (0.7-5.8) Baso % (Auto) 0.9 (0.1-1.2) % Neut # (Auto) 3.17 (1.56-6.13) K/mm3 Lymph # (Auto) 1.58 (1.18-3.74) K/mm3 Hardin # (Auto) 0.68 H (0.24-0.36) K/mm3 Eos # (Auto) 0.11 (0.04-0.36) K/mm3 Baso # (Auto) 0.05 (0.01-0.08) K/mm3 Sodium 143 (136-145) mEq/L Potassium 4.0 (3.5-5.1) mEq/L Chloride 108 H (98-107) mEq/L Carbon Dioxide 28 (21-32) mEq/L Anion Gap 11.0 (5-15) BUN 9 (7-18) mg/dL Creatinine 0.7 (0.55-1.02) mg/dL Est Cr Clr Drug Dosing 110.55 mL/min Estimated GFR (MDRD) > 60 (>60) mL/min BUN/Creatinine Ratio 12.9 L (14-18) Glucose 108 H (74-106) mg/dL Calcium 9.0 (8.5-10.1) mg/dL Total Bilirubin 0.1 L (0.2-1.0) mg/dL AST 23 (15-37) U/L ALT 23 (14-59) U/L Alkaline Phosphatase 75 (46-116) U/L Total Protein 6.9 (6.4-8.2) g/dl Albumin 3.7 (3.4-5.0) g/dl Globulin 3.2 gm/dL Albumin/Globulin Ratio 1.2 (1-2) Lipase 256 (73-393) U/L Meds: Medications Generic Name Dose Route Start Last Admin Trade Name Ana Cristina PRN Reason Stop Dose Admin Sodium Chloride 10 ml 10/17/16 06:39 10/17/16 06:50 Saline Flush FLUSH 10 ml ONETIME PRN Administration IV FLUSH Discontinued Medications Generic Name Dose Route Start Last Admin Trade Name Freq PRN Reason Stop Dose Admin Al Hydroxide/Mg Hydroxide 30 0 ml 10/17/16 03:00 10/17/16 03:05 ml/ Lidocaine HCl 15 ml PO 10/17/16 03:01 45 ml ONETIME ONE Administration Diatrizoate Meglum/Diatrizoate Sod 120 ml 10/17/16 06:39 10/17/16 06:50 Gastrografin 37% PO 10/17/16 06:40 90 ml ONETIME ONE Administration Famotidine 20 mg 10/17/16 04:57 10/17/16 05:19 Pepcid IVPUSH 10/17/16 04:58 20 mg ONETIME ONE Administration Iopamidol 150 ml 10/17/16 06:39 10/17/16 06:50 Isovue-300 (61%) IVPUSH 10/17/16 06:40 100 ml ONETIME ONE Administration Ondansetron HCl 4 mg 10/17/16 04:58 10/17/16 05:17 Zofran IVPUSH 10/17/16 04:59 4 mg ONETIME ONE Administration Pantoprazole Sodium 40 mg 10/17/16 04:57 10/17/16 05:21 Protonix Iv IVPUSH 10/17/16 04:58 40 mg ONETIME ONE Administration - Radiology Interpretation Free Text/Narrative:: Ultrasound of the upper abdomen and gallbladder does not show any acute findings and no gallstones CT scan of her abdomen and pelvis reveals findings consistent with constipation and she has a right ovarian cyst is 2.2 cm in size but no other acute findings. - Re-Assessments/Exams Free Text/Narrative Re-Assessment/Exam: 10/17/16 03:34 The GI cocktail had no effect on her upper abdominal pain. We will do an ultrasound of her gallbladder and upper abdomen. 10/17/16 07:34 The patient just went to the bathroom had a semi-good stool and actually her abdominal pain is easing up presently. All provide one pain pill to take home for the cramping and I'll give her prescription for some Bentyl to help with the cramping and she's can start a stool softener daily. Departure - Departure Time of Disposition: 07:35 Disposition: Home, Self-Care 01 Condition: Good Clinical Impression: Constipation by delayed colonic transit, Abdominal cramping - Discharge Information Prescriptions: Dicyclomine [Bentyl] 20 mg PO TID PRN #12 tab PRN Reason: Abdominal Pain Referrals: Isabel Whitaker, EMBEDDED NURSE [Primary Care Provider] - Forms: ED Department Discharge, ED Return to Work/School Form Additional Instructions: Takes a pain pill after you get home to not take it and drive, use the prescription to get medicine for the belly cramps, obtain some stool softener such as Colace or Dulcolax or Claudia-Colace and take it faithfully to keep your stool soft and regular, recheck with your family doctor if your symptoms persist or return to the ER - My Orders Last 24 Hours: My Active Orders 10/17/16 03:34 Abdomen Ltd [US] Stat 10/17/16 04:56 Abdomen Pelvis w Cont [CT] Stat 10/17/16 06:39 Sodium Chloride 0.9% [Saline Flush] 10 ml FLUSH ONETIME PRN 10/17/16 07:37 Acetaminophen/HYDROcodone [[place] 325-5 MG] 1 tab PO ONETIME ONE - Assessment/Plan Last 24 Hours: My Active Orders 10/17/16 03:34 Abdomen Ltd [US] Stat 10/17/16 04:56 Abdomen Pelvis w Cont [CT] Stat 10/17/16 06:39 Sodium Chloride 0.9% [Saline Flush] 10 ml FLUSH ONETIME PRN 10/17/16 07:37 Acetaminophen/HYDROcodone [[place] 325-5 MG] 1 tab PO ONETIME ONE
[2016-10-17] MEDS ORDERED: Alum Hydrox/Mag Hydrox/Simeth 30 ML, Lidocaine 2% 15 ML PO ONE ×2 (03:00)
[2016-10-17] MEDS ORDERED: Famotidine 20 MG/2 ML SDV IVPUSH ONE (04:57)
[2016-10-17] MEDS ORDERED: Pantoprazole 40 MG Vial IVPUSH ONE (04:57)
[2016-10-17] MEDS ORDERED: Ondansetron 4 MG/2 ML SDV IVPUSH ONE (04:58)
[2016-10-17] MEDS ORDERED: Diatrizoate Meglumine/Diatrizoate Sodium 37% 120 ML Bottle PO ONE (06:39)
[2016-10-17] MEDS ORDERED: Iopamidol 612 MG/ML 150 ML Bottle IVPUSH ONE (06:39)
[2016-10-17] MEDS ORDERED: Sodium Chloride 0.9% 10 ML Syringe FLUSH PRN (06:39)
[2016-10-17] MEDS ORDERED: Acetaminophen/HYDROcodone 325-5 MG Tab PO ONE (07:37)
--- NOTE | 2016-10-17 18:24 | US ---
Limited abdominal ultrasound: Multiple real-time images of the upper right abdomen were obtained. Comparison: Previous abdominal and pelvic CT exam of 05/26/16. Visualized pancreas is within normal limits. Liver shows no focal abnormality. Gallbladder not optimally distended. No shadowing gallstones are seen. Common bile duct measures at the upper limits of normal at 7 mm. Right kidney shows no hydronephrosis or mass and has a length of 10.6 cm. Impression: 1. Gallbladder not well distended. No shadowing gallstones are seen. Common bile duct measures at the upper limits of normal at 7 mm. 2. No additional abnormality is identified on right upper quadrant abdominal ultrasound. Diagnostic code #2 Agree with preliminary report issued by [employer] ([facility] preliminary report dictated on 10/17/16, 5:44 AM Central Time)
--- NOTE | 2016-10-17 18:24 | CT ---
CT abdomen and pelvis Technique: Multiple axial sections were obtained from above the dome of the diaphragm inferiorly through the pubic symphysis. Intravenous and oral contrast has been given. Delayed images were also obtained through the bladder. Comparison: Previous right upper quadrant abdominal ultrasound performed on the same day (4:08 PM) and previous CT exam of the abdomen and pelvis dated 05/26/16. Findings: Visualized lung bases show nothing acute. Liver shows no focal parenchymal abnormality. Pancreas appears within normal limits. Spleen appears within normal limits. Adrenal glands show no nodule. Gallbladder shows no calcified gallstones. Kidneys show symmetric contrast enhancement without hydronephrosis or mass. Aorta shows no aneurysmal dilatation. No retroperitoneal adenopathy is seen. Appendix is seen which is normal. Physiologic cyst is noted within the right ovary. No pelvic mass or adenopathy is identified. Delayed images show contrast within the distal ureters and within the bladder. No free fluid or inflammatory change is seen. Bone window settings were reviewed which appear within normal limits for the patient's age. Previous study showed a small anterior abdominal wall hernia which is no longer present. Minimal increased density within the subcutaneous fat in this area seen compatible with surgical change. Impression: 1. Surgical repair of previous upper anterior abdominal wall hernia. 2. CT study of the abdomen and pelvis is unremarkable. Nothing acute is identified. Diagnostic code #2 Agree with preliminary report issued by [employer] ([employer] preliminary report dictated on 10/17/16, 8:07 AM Central Time)
== END 2016-10-17 08:03 | disposition home or self-care (01) ==
LOC: JD.ED 02:36
DX: K59.01 Slow transit constipation (principal); F17.210 Nicotine dependence, cigarettes, uncomplicated; Z87.440 Personal history of urinary (tract) infections
CPT/HCPCS: 36415; 74177; 76705; 80053; 83690; 85025; 96374; 96375; 99284; A9270; C9113; J2405; J7050; Q9963; Q9967

== ENCOUNTER 2018-03-10 08:43 | Emergency (ER) | payer MEDICAID ==
[2018-03-10 08:58] VITALS: BP 114/95
--- NOTE | 2018-03-10 09:19 | EDM.PDOC ---
ED HPI GENERAL MEDICAL PROBLEM - General Chief Complaint: ENT Problem Stated Complaint: TOOTH PAIN Time Seen by Provider: 03/10/18 08:59 Source of Information: Reports: Patient History Limitations: Reports: No Limitations - History of Present Illness INITIAL COMMENTS - FREE TEXT/NARRATIVE: The patient presents with right upper jaw dental pain. This started about 3 days ago. She has a fractured tooth that did need a root canal about a year ago but she could not afford it at the time. She denies fever or chills. She is seeing her dentist on . Onset: Gradual Duration: Day(s): (3) Location: Reports: Other (Mouth) Quality: Reports: Sharp Severity: Severe Improves with: Reports: None Worsens with: Reports: None Associated Symptoms: Reports: No Other Symptoms Right Upper Oral/Mouth Pain Score (Numeric/FACES): 9 - Related Data Allergies Allergy/AdvReac Type Severity Reaction Status Date / Time No Known Allergies Allergy Verified 03/10/18 08:58 Home Meds: Home Meds Hydrocodone/Acetaminophen [Hydrocodon-Acetaminophen 5-325] 1 - 2 each PO Q6HR PRN #20 tablet 03/10/18 [Rx] Penicillin V Potassium 500 mg PO Q6HR #40 tab 03/10/18 [Rx] medroxyPROGESTERone [Depo-Provera Contraceptive] 1 dose INJECT ASDIRECTED [History] Past Medical History - Past Health History Medical/Surgical History: Denies Medical/Surgical History Genitourinary History: Reports: UTI, Recurrent 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: Right breast lipoma evaluated in [facility] Psychiatric History: Reports: Depression - Past Surgical History HEENT Surgical History: Reports: Oral Surgery Social & Family History - Family History Family Medical History: Noncontributory - Caffeine Use Caffeine Use: Reports: Coffee, Soda - Living Situation & Occupation Living situation: Reports: Single, with Family Occupation: Employed ED ROS ENT - Review of Systems Review Of Systems: See Below Constitutional: Reports: No Symptoms HEENT: Reports: Dental Pain Respiratory: Reports: No Symptoms Cardiovascular: Reports: No Symptoms Endocrine: Reports: No Symptoms GI/Abdominal: Reports: No Symptoms : Reports: No Symptoms Musculoskeletal: Reports: No Symptoms Skin: Reports: No Symptoms Neurological: Reports: No Symptoms ED EXAM, ENT - Physical Exam Exam: See Below Exam Limited By: No Limitations General Appearance: Alert, No Apparent Distress Ears: Normal External Exam Nose: Normal Inspection Mouth/Throat: Other (Fractured right upper premolar with pain upon palpation.) Head: Atraumatic, Normocephalic Neck: Normal Inspection, Supple, Non-Tender Respiratory/Chest: No Respiratory Distress Course - Vital Signs Last Recorded V/S: Last Vital Signs Temp 97.9 F 03/10/18 08:55 Pulse 122 H 03/10/18 08:55 Resp 18 03/10/18 08:55 BP 114/95 H 03/10/18 08:55 Pulse Ox 100 03/10/18 08:55 Departure - Departure Time of Disposition: 09:20 Disposition: Home, Self-Care 01 Condition: Good Clinical Impression: Dental abscess, Pain, dental Fractured tooth Qualifiers: Encounter type: initial encounter Fracture type: closed Qualified Code(s): S02.5XXA - Fracture of tooth (traumatic), initial encounter for closed fracture - Discharge Information *PRESCRIPTION DRUG MONITORING PROGRAM REVIEWED*: No *COPY OF PRESCRIPTION DRUG MONITORING REPORT IN PATIENT MARTIR: No Prescriptions: Hydrocodone/Acetaminophen [Hydrocodon-Acetaminophen 5-325] 1 - 2 each PO Q6HR PRN #20 tablet PRN Reason: Pain Penicillin V Potassium 500 mg PO Q6HR #40 tab Referrals: PCP,None [Primary Care Provider] - Additional Instructions: Take the medication as prescribed. Follow up with your dentist as scheduled. Please return if you are worse.
== END 2018-03-10 09:29 | disposition home or self-care (01) ==
LOC: JD.ED 08:43
DX: S02.5XXA Fracture of tooth (traumatic), initial encounter for closed fracture (principal); K04.7 Periapical abscess without sinus; Z79.899 Other long term (current) drug therapy; Z87.440 Personal history of urinary (tract) infections; Z98.890 Other specified postprocedural states
CPT/HCPCS: 99282

== ENCOUNTER 2018-04-18 17:26 | Emergency (ER) | payer MEDICAID ==
[2018-04-18] MEDS ORDERED: HYDROmorphone 1 MG/ML Syringe IM ONE (17:48)
[2018-04-18] MEDS ORDERED: HYDROmorphone 1 MG/ML Syringe IVPUSH ONE (17:52)
[2018-04-18] MEDS ORDERED: Lactated Ringers 1,000 ML ONE (19:09)
--- NOTE | 2018-04-18 19:11 | EDM.PDOC ---
ED HPI GENERAL MEDICAL PROBLEM - General Chief Complaint: Lower Extremity Injury/Pain Stated Complaint: POSS BROKEN LEG Time Seen by Provider: 04/18/18 18:54 Source of Information: Reports: Patient, RN Notes Reviewed - History of Present Illness INITIAL COMMENTS - FREE TEXT/NARRATIVE: 27 year old female tripped, fell down steps injuring R ankle, has deformity, no other area of pain or injury. Her last meal was 6 1/2 hrs ago, She did have some alchohol about 2 to 3 hrs ago before she came in. No know major health problems. No chest, head, neck, back pain or difficulty breathing. 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: Right breast lipoma evaluated in [facility] Psychiatric History: Reports: Depression - Past Surgical History HEENT Surgical History: Reports: Oral Surgery GI Surgical History: Reports: Hernia, Abdominal Social & Family History - Family History Family Medical History: Noncontributory - Tobacco Use Smoking Status *Q: Current Every Day Smoker Years of Tobacco use: 13 Packs/Tins Daily: 13 - Caffeine Use Caffeine Use: Reports: Coffee, Soda - Recreational Drug Use Recreational Drug Use: No - Living Situation & Occupation Living situation: Reports: Single, with Family Occupation: Employed Review of Systems - Review of Systems Review Of Systems: See Below Constitutional: Reports: No Symptoms Mouth/Throat: Reports: No Symptoms Respiratory: Denies: Shortness of Breath Cardiovascular: Denies: Chest Pain GI/Abdominal: Denies: Abdominal Pain, Nausea, Vomiting Musculoskeletal: Reports: Joint Pain (Severe pain right ankle and foot) Skin: Reports: No Symptoms Neurological: Reports: Numbness (Mild numbness right foot) ED EXAM, GENERAL - Physical Exam Exam: See Below General Appearance: Alert, Moderate Distress Eye Exam: Bilateral Eye: PERRL Throat/Mouth: Normal Inspection Head: Atraumatic Neck: Supple, Non-Tender Respiratory/Chest: No Respiratory Distress, Lungs Clear, Normal Breath Sounds Cardiovascular: Regular Rate, Rhythm Extremities: Joint Swelling, Other (There is severe tenderness, obvious deformity of the right ankle with foot displaced laterally. Upper leg is nontender, she is good cap refill, dorsalis pedis pulse palpable) Neurological: Alert, Oriented, No Motor/Sensory Deficits (Touch sensation to toes and volar aspect of foot intact) Skin Exam: Warm, Dry, Intact, Normal Color ED TRAUMA EXTREMITY PROCEDURES - Splinting Right Lower Extremity Splint Site: Short leg splint right foot and ankle Pre-Procedure NV Status: Normal Post-Procedure NV Status: Normal Splint Material: Fiberglass Splint Design: Posterior Applied & Form Fitted By: Provider Provider Post-Splint Application NV Check: NV Status Normal Complications: No - Additional/Other Procedure(s) Other (Free Text) Procedure(s): Closed reduction of dislocated ankle. Nurse longwall shearer operator was called in and did administer propofol IV. With that goal was reduced without difficulty back into position of normal alignment. Posterior 4 inch fiberglass splint placed immediately. Reduction x-rays do show fracture of the medial malleolus but ankle and foot no in normal alignment. Course - Vital Signs Last Recorded V/S: Last Vital Signs Temp 97.3 F 04/18/18 19:56 Pulse 93 04/18/18 19:56 Resp 22 H 04/18/18 19:56 BP 113/84 04/18/18 19:56 Pulse Ox 100 04/18/18 19:56 - Orders/Labs/Meds Orders: Active Orders 24 hr Category Date Time Status Ankle 2V Rt [CR] Stat Exams 04/18/18 19:37 Taken Ankle Min 3V Rt [CR] Stat Exams 04/18/18 17:57 Taken Tibia Fibula Rt [CR] Stat Exams 04/18/18 18:00 Taken Labs: Laboratory Tests 04/18/18 04/18/18 Range/Units 18:53 18:53 WBC 9.14 (3.98-10.04) K/mm3 RBC 4.66 (3.98-5.22) M/mm3 Hgb 14.2 (11.2-15.7) gm/L Hct 43.5 (34.1-44.9) % MCV 93.3 (79.4-94.8) fl MCH 30.5 (25.6-32.2) pg MCHC 32.6 (32.2-35.5) g/dl RDW Std Deviation 45.3 (36.4-46.3) fL Plt Count 236 (182-369) K/mm3 MPV 11.3 (9.4-12.3) fl Neut % (Auto) 47.2 (34.0-71.1) % Lymph % (Auto) 40.7 (19.3-51.7) % [place] % (Auto) 9.6 (4.7-12.5) % Eos % (Auto) 1.5 (0.7-5.8) Baso % (Auto) 0.9 (0.1-1.2) % Neut # (Auto) 4.31 (1.56-6.13) K/mm3 Lymph # (Auto) 3.72 (1.18-3.74) K/mm3 [place] # (Auto) 0.88 H (0.24-0.36) K/mm3 Eos # (Auto) 0.14 (0.04-0.36) K/mm3 Baso # (Auto) 0.08 (0.01-0.08) K/mm3 Sodium 139 (136-145) mEq/L Potassium 3.7 (3.5-5.1) mEq/L Chloride 107 (98-107) mEq/L Carbon Dioxide 21 (21-32) mEq/L Anion Gap 14.7 (5-15) BUN 9 (7-18) mg/dL Creatinine 0.7 (0.55-1.02) mg/dL Est Cr Clr Drug Dosing 104.24 mL/min Estimated GFR (MDRD) > 60 (>60) mL/min BUN/Creatinine Ratio 12.9 L (14-18) Glucose 91 (74-106) mg/dL Calcium 8.6 (8.5-10.1) mg/dL Total Bilirubin 0.1 L (0.2-1.0) mg/dL AST 43 H (15-37) U/L ALT 53 (14-59) U/L Alkaline Phosphatase 109 (46-116) U/L Total Protein 7.6 (6.4-8.2) g/dl Albumin 3.5 (3.4-5.0) g/dl Globulin 4.1 gm/dL Albumin/Globulin Ratio 0.9 L (1-2) Ethyl Alcohol 0.12 (0.00) gm% Meds: Medications Discontinued Medications Generic Name Dose Route Start Last Admin Trade Name Ana Cristina PRN Reason Stop Dose Admin Fentanyl Confirm 04/18/18 19:26 Sublimaze Administered 04/18/18 19:27 Dose 100 mcg .ROUTE .STK-MED ONE Hydromorphone HCl 1 mg 04/18/18 17:48 04/18/18 17:53 Dilaudid IM 04/18/18 17:49 Not Given ONETIME ONE Hydromorphone HCl 1 mg 04/18/18 17:52 04/18/18 17:50 Dilaudid IVPUSH 04/18/18 17:53 1 mg ONETIME ONE Administration Hydromorphone HCl 0.5 mg 04/18/18 19:13 04/18/18 21:21 Dilaudid IVPUSH 04/18/18 19:14 0.5 mg ONETIME ONE Administration Lactated Ringer's Confirm 04/18/18 19:09 04/18/18 20:11 Ringers, Lactated Administered 04/18/18 19:10 Not Given Dose 1,000 mls @ as directed .ROUTE .STK-MED ONE Lidocaine HCl Confirm 04/18/18 19:26 Xylocaine-Mpf 1% Administered 04/18/18 19:27 Dose 4 mls @ as directed .ROUTE .STK-MED ONE Sodium Chloride 1,000 mls @ 999 mls/hr 04/18/18 20:15 04/18/18 20:10 Normal Saline IV 999 mls/hr ONETIME REJI Administration Midazolam HCl Confirm 04/18/18 19:26 Versed 1 Mg/Ml Administered 04/18/18 19:27 Dose 2 mg .ROUTE .STK-MED ONE Propofol Confirm 04/18/18 19:26 Diprivan 20 Ml Administered 04/18/18 19:27 Dose 200 mg .ROUTE .STK-MED ONE - Re-Assessments/Exams Free Text/Narrative Re-Assessment/Exam: 04/19/18 04:34 Patient had been given Dilaudid 1 mg IV prior to my seeing the patient. We did give another half milligram IV prior to reduction in another half milligram IV prior to discharge. I did discuss this with Dr. Ann, Orthopedist leather production worker who would like to see patient in 1 week, allowing time for swelling to go down. Crutches provided, discharge instr. as documented. Departure - Departure Time of Disposition: 22:02 Disposition: Home, Self-Care 01 Condition: Fair Clinical Impression: Fracture dislocation of right ankle Qualifiers: Encounter type: initial encounter Fracture type: closed Qualified Code(s): S82.891A - Other fracture of right lower leg, initial encounter for closed fracture - Discharge Information Instructions: Ankle Fracture Referrals: Mary Lou Lange NP [Primary Care Provider] - Forms: ED Department Discharge, ED Return to Work/School Form Additional Instructions: Rest and elevate foot and ankle is much as possible, intermittent ice packs for swelling, use crutches, no weightbearing. Percocet 1 tab every 6-8 hours as needed for severe pain, when the pain gets better you can take one half tablet Percocet along with 500 mg Tylenol every 6-8 hours. See , orthopedist in 1 week, next Tuesday. Call [phone] tomorrow morning for appointment. Plan is to do surgery for you a week from this coming . No work until released to go back to work by Dr. Ann, Orthopedist - My Orders Last 24 Hours: My Active Orders 04/18/18 17:57 Ankle Min 3V Rt [CR] Stat 04/18/18 18:00 Tibia Fibula Rt [CR] Stat 04/18/18 19:37 Ankle 2V Rt [CR] Stat - Assessment/Plan Last 24 Hours: My Active Orders 04/18/18 17:57 Ankle Min 3V Rt [CR] Stat 04/18/18 18:00 Tibia Fibula Rt [CR] Stat 04/18/18 19:37 Ankle 2V Rt [CR] Stat
[2018-04-18] MEDS: HYDROmorphone 1 MG/ML Syringe IVPUSH ONE ×2 (19:15→21:21)
[2018-04-18] MEDS ORDERED: Propofol 200 MG/20 ML SDV ONE (19:26)
[2018-04-18] MEDS ORDERED: Lidocaine 1% 4 ML ONE (19:26)
[2018-04-18] MEDS ORDERED: Midazolam 1 MG/ML 2 ML SDV ONE (19:26)
[2018-04-18] MEDS ORDERED: fentaNYL 100 MCG/2 ML SDV ONE (19:26)
[2018-04-18 19:56] VITALS: BP 113/84
--- NOTE | 2018-04-18 19:56 | PCM.PREANE ---
Preanesthetic Assessment - Anesthesia/Transfusion/Family Hx Anesthesia History: Prior Anesthesia Without Reaction Family History of Anesthesia Reaction: No Transfusion History: No Prior Transfusion(s) Type of Transfusion Reactions: Reports: Unknown - Review of Systems General: Fatigue Pulmonary: No Symptoms Cardiovascular: No Symptoms Gastrointestinal: No Symptoms Neurological: Numbness (right ankle) Other: Reports: None - Physical Assessment NPO Status Date: 04/18/18 NPO Status Time: 12:30 Pulse: 93 O2 Sat by Pulse Oximetry: 100 Respiratory Rate: 22 Blood Pressure: 113/84 Temperature: 36.3 C Vital Signs: Last Vital Signs Temp 37.2 C 04/18/18 17:37 Pulse 110 H 04/18/18 17:37 Resp 22 H 04/18/18 17:37 BP 126/83 04/18/18 17:37 Pulse Ox 99 04/18/18 17:37 Height: 1.63 m Weight: 79.379 kg ASA Class: 2E Mental Status: Alert & Oriented x3 Airway Class: Mallampati = 1 Dentition: Reports: Normal Dentition Thyro-Mental Finger Breadths: 3 Mouth Opening Finger Breadths: 3 ROM/Head Extension: Full Lungs: Clear to Auscultation, Normal Respiratory Effort Cardiovascular: Regular Rate, Regular Rhythm - Lab Values: Laboratory Last Values WBC 9.14 K/mm3 (3.98-10.04) 04/18/18 18:53 RBC 4.66 M/mm3 (3.98-5.22) 04/18/18 18:53 Hgb 14.2 gm/L (11.2-15.7) 04/18/18 18:53 Hct 43.5 % (34.1-44.9) 04/18/18 18:53 MCV 93.3 fl (79.4-94.8) 04/18/18 18:53 MCH 30.5 pg (25.6-32.2) 04/18/18 18:53 MCHC 32.6 g/dl (32.2-35.5) 04/18/18 18:53 RDW Std Deviation 45.3 fL (36.4-46.3) 04/18/18 18:53 Plt Count 236 K/mm3 (182-369) 04/18/18 18:53 MPV 11.3 fl (9.4-12.3) 04/18/18 18:53 Neut % (Auto) 47.2 % (34.0-71.1) 04/18/18 18:53 Lymph % (Auto) 40.7 % (19.3-51.7) 04/18/18 18:53 [place] % (Auto) 9.6 % (4.7-12.5) 04/18/18 18:53 Eos % (Auto) 1.5 (0.7-5.8) 04/18/18 18:53 Baso % (Auto) 0.9 % (0.1-1.2) 04/18/18 18:53 Neut # (Auto) 4.31 K/mm3 (1.56-6.13) 04/18/18 18:53 Lymph # (Auto) 3.72 K/mm3 (1.18-3.74) 04/18/18 18:53 [place] # (Auto) 0.88 K/mm3 (0.24-0.36) H 04/18/18 18:53 Eos # (Auto) 0.14 K/mm3 (0.04-0.36) 04/18/18 18:53 Baso # (Auto) 0.08 K/mm3 (0.01-0.08) 04/18/18 18:53 Sodium 139 mEq/L (136-145) 04/18/18 18:53 Potassium 3.7 mEq/L (3.5-5.1) 04/18/18 18:53 Chloride 107 mEq/L (98-107) 04/18/18 18:53 Carbon Dioxide 21 mEq/L (21-32) 04/18/18 18:53 Anion Gap 14.7 (5-15) 04/18/18 18:53 BUN 9 mg/dL (7-18) 04/18/18 18:53 Creatinine 0.7 mg/dL (0.55-1.02) 04/18/18 18:53 Est Cr Clr Drug Dosing 104.24 mL/min 04/18/18 18:53 Estimated GFR (MDRD) > 60 mL/min (>60) 04/18/18 18:53 BUN/Creatinine Ratio 12.9 (14-18) L 04/18/18 18:53 Glucose 91 mg/dL (74-106) 04/18/18 18:53 Calcium 8.6 mg/dL (8.5-10.1) 04/18/18 18:53 Total Bilirubin 0.1 mg/dL (0.2-1.0) L 04/18/18 18:53 AST 43 U/L (15-37) H 04/18/18 18:53 ALT 53 U/L (14-59) 04/18/18 18:53 Alkaline Phosphatase 109 U/L (46-116) 04/18/18 18:53 Total Protein 7.6 g/dl (6.4-8.2) 04/18/18 18:53 Albumin 3.5 g/dl (3.4-5.0) 04/18/18 18:53 Globulin 4.1 gm/dL 04/18/18 18:53 Albumin/Globulin Ratio 0.9 (1-2) L 04/18/18 18:53 Ethyl Alcohol 0.12 gm% (0.00) 04/18/18 18:53 - Allergies Allergies/Adverse Reactions: Allergies Allergy/AdvReac Type Severity Reaction Status Date / Time No Known Allergies Allergy Verified 03/10/18 08:58 - Blood Blood Available: No Product(s) Available: None - Anesthesia Plan Pre-Op Medication Ordered: None - Acknowledgements Anesthesia Type Planned: MAC Pt an Appropriate Candidate for the Planned Anesthesia: Yes Alternatives and Risks of Anesthesia Discussed w Pt/Guardian: Yes Pt/Guardian Understands and Agrees with Anesthesia Plan: Yes PreAnesthesia Questionnaire - Past Health History Medical/Surgical History: Denies Medical/Surgical History Gastrointestinal History: Reports: GERD Genitourinary History: Reports: UTI, Recurrent 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 History: Right breast lipoma evaluated in [facility] Psychiatric History: Reports: Depression - Past Surgical History HEENT Surgical History: Reports: Oral Surgery GI Surgical History: Reports: Hernia, Abdominal - SUBSTANCE USE Smoking Status *Q: Current Every Day Smoker Tobacco Use Within Last Twelve Months: Cigarettes Recreational Drug Use History: No - HOME MEDS Home Medications: Home Meds medroxyPROGESTERone [Depo-Provera Contraceptive] 1 dose INJECT ASDIRECTED [History] - CURRENT (IN HOUSE) MEDS Current Meds: Current Medications Discontinued Medications Fentanyl (Sublimaze) Confirm Administered Dose 100 mcg .ROUTE .STK-MED ONE Stop: 04/18/18 19:27 Hydromorphone HCl (Dilaudid) 1 mg IM ONETIME ONE Stop: 04/18/18 17:49 Last Admin: 04/18/18 17:53 Dose: Not Given Hydromorphone HCl (Dilaudid) 1 mg IVPUSH ONETIME ONE Stop: 04/18/18 17:53 Last Admin: 04/18/18 17:50 Dose: 1 mg Hydromorphone HCl (Dilaudid) 0.5 mg IVPUSH ONETIME ONE Stop: 04/18/18 19:14 Last Admin: 04/18/18 19:15 Dose: 0.5 mg Lactated Ringer's (Ringers, Lactated) Confirm Administered Dose 1,000 mls @ as directed .ROUTE .STK-MED ONE Stop: 04/18/18 19:10 Lidocaine HCl (Xylocaine-Mpf 1%) Confirm Administered Dose 4 mls @ as directed .ROUTE .STK-MED ONE Stop: 04/18/18 19:27 Midazolam HCl (Versed 1 Mg/Ml) Confirm Administered Dose 2 mg .ROUTE .STK-MED ONE Stop: 04/18/18 19:27 Propofol (Diprivan 20 Ml) Confirm Administered Dose 200 mg .ROUTE .STK-MED ONE Stop: 04/18/18 19:27
[2018-04-18] MEDS ORDERED: Sodium Chloride 0.9% 1,000 ML IV SCH (20:15)
--- NOTE | 2018-04-19 07:02 | CR ---
Right ankle: Two views of the right ankle were obtained. Comparison: Prior right ankle study performed earlier on the same day (5:57 PM). Previous dislocation has been reduced. Fracture is identified within the medial malleolus as well as chip fracture involving the anterior tibia. No discrete fibular abnormality is seen on this exam. Talar dome appears to be intact. Soft tissue swelling is noted. Impression: 1. Medial malleolus fracture. Small chip fracture involving the anterior tibia. 2. Previous dislocation has been reduced. Diagnostic code #3
--- NOTE | 2018-04-19 07:02 | CR ---
Right tibia and fibula: AP and lateral views of the right tibia and fibula were obtained. Comparison: No prior study. Ankle dislocation is seen. Small unfused apophysis is noted at the anterior tibial tuberosity which is old. No acute fracture is seen within the tibia or fibula. Impression: 1. Ankle dislocation is noted. 2. Other incidental finding. No acute fracture is seen. Diagnostic code #3
--- NOTE | 2018-04-19 07:02 | CR ---
Right ankle: Three views of the right ankle were obtained. Comparison: Previous right ankle study performed slightly earlier on the same day. Continuing dislocation is seen of the tibia and fibula in a lateral direction. Soft tissue swelling is seen. Impression: 1. Continuing ankle dislocation. Diagnostic code #3
== END 2018-04-18 22:10 | disposition home or self-care (01) ==
LOC: JD.ED 17:26
DX: S82.51XA Displaced fracture of medial malleolus of right tibia, initial encounter for closed fracture (principal); W10.9XXA Fall (on) (from) unspecified stairs and steps, initial encounter; F17.210 Nicotine dependence, cigarettes, uncomplicated
CPT/HCPCS: 27762; 36415; 73590; 73600; 73610; 80053; 85025; 96361; 96374; 96376; 99152; 99284; G0480; J1170; J2001; J2250; J2704; J3010; J7040; 01462; 27818; 27842; 29515

== ENCOUNTER 2018-11-10 19:09 | Emergency (ER) | payer SELFPAY ==
[2018-11-10 19:16] VITALS: BP 131/108; PULSE 101
--- NOTE | 2018-11-10 20:15 | EDM.PDOC ---
ED HPI GENERAL MEDICAL PROBLEM - General Chief Complaint: ENT Problem Stated Complaint: RIGHT SIDE MOUTH PAIN Time Seen by Provider: 11/10/18 19:40 Source of Information: Reports: Patient History Limitations: Reports: No Limitations - History of Present Illness INITIAL COMMENTS - FREE TEXT/NARRATIVE: 27 year old female presents for evaluation and treatment of right sided facial pain. Patient reports pain to the right upper molar. Present for the last few days. Has tried multiple OTC medications with no relief. Current symptoms include, dental pain, facial swelling nausea, chills and a bad taste in her mouth. She also has right sided sinus pressure and ear pain. Patient reports she cracked this tooth a while ago but it only recently started causing her pain. Has an appointment with dental in the next few days. States it has been a while since she has seen dental. 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: Right breast lipoma evaluated in [facility] Psychiatric History: Reports: Depression - Past Surgical History HEENT Surgical History: Reports: Oral Surgery GI Surgical History: Reports: Hernia, Abdominal Social & Family History - Family History Family Medical History: Noncontributory - Tobacco Use Smoking Status *Q: Current Status Unknown - Caffeine Use Caffeine Use: Reports: None - Recreational Drug Use Recreational Drug Use: No - Living Situation & Occupation Living situation: Reports: Single, with Family Occupation: Employed ED ROS ENT - Review of Systems Review Of Systems: See Below Constitutional: Reports: Chills. Denies: Fever (unsure) HEENT: Reports: Dental Pain (right upper molar), Ear Pain (right), Other ( reports a bad tast in her mouth) GI/Abdominal: Reports: Nausea. Denies: Vomiting ED EXAM, ENT - Physical Exam Exam: See Below Exam Limited By: No Limitations General Appearance: Alert, WD/WN, Mild Distress Eye Exam: Bilateral Eye: Normal Inspection Ears: Normal External Exam, Normal Canal, Hearing Grossly Normal, Normal TMs Nose: Normal Inspection Mouth/Throat: Normal Inspection, Normal Lips, Normal Oropharynx, Dental Abcess ( right upper molar, #3), Dental Pain (#3), Dental Tenderness (#3) Head: Facial Swelling (minor right maxilla) Neck: Normal Inspection Respiratory/Chest: No Respiratory Distress, Lungs Clear, Normal Breath Sounds Cardiovascular: Normal Peripheral Pulses, Regular Rate, Rhythm, No Murmur Neurological: Alert, Oriented, Normal Cognition Psychiatric: Normal Affect, Normal Mood Skin: Warm, Dry, Normal Color Course - Vital Signs Last Recorded V/S: Last Vital Signs Temp 97.5 F 11/10/18 19:13 Pulse 101 H 11/10/18 19:13 Resp 19 11/10/18 19:13 BP 131/108 H 11/10/18 19:13 Pulse Ox 98 11/10/18 19:13 Departure - Departure Time of Disposition: 20:10 Disposition: Home, Self-Care 01 Condition: Fair Clinical Impression: Dental abscess, Dental caries - Discharge Information *PRESCRIPTION DRUG MONITORING PROGRAM REVIEWED*: No *COPY OF PRESCRIPTION DRUG MONITORING REPORT IN PATIENT MARTIR: No Instructions: Dental Abscess, [id number] Referrals: Mary Lou Lange NP [Primary Care Provider] - Forms: ED Department Discharge Additional Instructions: Augmentin [id number] #20 dispensed for instymeds Take the Augmentin as prescribed. 1 tab twice a day for 10 days. Take with food. Recommend yogurt or a probiotic to help reduce side effects of upset stomach, nausea and diarrhea. [id number] Tylenol or Motrin as needed for pain relief. If your are taking Motrin recommend something like Pepcid to help reduce side effects of an upset stomach. Do not take more than 4 g of Tylenol in 1 day. Do not take more than 3200 mg of Motrin and 1 day. You may try topical Orajel or clove oil for additional pain relief. Follow-up with a dentist as soon as you're able to. Please return to the ER if your symptoms change or worsen.
== END 2018-11-10 20:23 | disposition home or self-care (01) ==
LOC: JD.ED 19:09
DX: K04.7 Periapical abscess without sinus (principal); K02.9 Dental caries, unspecified
CPT/HCPCS: 99282; 99283

== ENCOUNTER 2018-12-24 16:05 | Emergency (ER) | payer SELFPAY ==
[2018-12-24 16:16] VITALS: BP 130/91; PULSE 105
[2018-12-24] MEDS ORDERED: Acetaminophen/HYDROcodone 325-5 MG Tab PO ONE (17:02)
--- NOTE | 2018-12-24 17:09 | EDM.PDOC ---
ED HPI GENERAL MEDICAL PROBLEM - General Chief Complaint: ENT Problem Stated Complaint: MOUTH ABSCESS Time Seen by Provider: 12/24/18 16:54 Source of Information: Reports: Patient, RN Notes Reviewed - History of Present Illness INITIAL COMMENTS - FREE TEXT/NARRATIVE: 28-year-old female comes in with dental pain. She has had trouble with right upper premolar in the past and finished a course of antibiotics about 2 months ago. That has started to give her trouble again. It is broken off at the gumline. She has not yet been able to see a dentist. Now she also is having pain of right anterior lower premolar that does have a deep cavity. That tooth has not previously given trouble. No fever with this. Very mild right facial swelling. 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: Right breast lipoma evaluated in [facility] Musculoskeletal History: Reports: None Neurological History: Reports: None Psychiatric History: Reports: Depression Endocrine/Metabolic History: Reports: None Hematologic History: Reports: None Immunologic History: Reports: None Oncologic (Cancer) History: Reports: None Dermatologic History: Reports: None - Infectious Disease History Infectious Disease History: Reports: None - Past Surgical History Head Surgeries/Procedures: Reports: None HEENT Surgical History: Reports: Oral Surgery GI Surgical History: Reports: Hernia, Abdominal Social & Family History - Family History Family Medical History: Noncontributory - Tobacco Use Smoking Status *Q: Current Every Day Smoker Years of Tobacco use: 14 Packs/Tins Daily: 0.5 - Caffeine Use Caffeine Use: Reports: Coffee - Recreational Drug Use Recreational Drug Use: No - Living Situation & Occupation Living situation: Reports: Single, with Family Occupation: Employed ED ROS ENT - Review of Systems Review Of Systems: See Below Constitutional: Denies: Fever, Chills HEENT: Reports: Dental Pain. Denies: Ear Pain, Sinus Problem Respiratory: Denies: Shortness of Breath Cardiovascular: Denies: Chest Pain GI/Abdominal: Denies: Abdominal Pain, Nausea, Vomiting Musculoskeletal: Denies: Neck Pain Skin: Denies: Rash, Erythema Neurological: Reports: No Symptoms ED EXAM, ENT - Physical Exam Exam: See Below General Appearance: Alert, Mild Distress Eye Exam: Bilateral Eye: PERRL Ears: Normal External Exam Nose: Normal Inspection Mouth/Throat: Dental Pain (R upper 2nd molar broken off at gum line, very mild swelling of lateral gum, no visible abcess, no drainage), Dental Tenderness, Gum Swelling. No: Throat Swelling Head: Facial Swelling (very slight facial swelling) Neck: Supple, Full Range of Motion. No: Lymphadenopathy (L), Lymphadenopathy (R ) Respiratory/Chest: No Respiratory Distress, Lungs Clear, Normal Breath Sounds Cardiovascular: Regular Rate, Rhythm Neurological: Alert, Oriented, No Motor/Sensory Deficits Skin: Warm, Dry, Normal Color, No Rash Course - Vital Signs Last Recorded V/S: Last Vital Signs Temp 97.6 F 12/24/18 16:12 Pulse 105 H 12/24/18 16:12 Resp 16 12/24/18 16:12 BP 130/91 H 12/24/18 16:12 Pulse Ox 100 12/24/18 16:12 - Orders/Labs/Meds Meds: Medications Discontinued Medications Generic Name Dose Route Start Last Admin Trade Name Ana Cristina PRN Reason Stop Dose Admin Hydrocodone Bitart/Acetaminophen 1 tab 12/24/18 17:02 12/24/18 17:15 [place] 325-5 Mg PO 12/24/18 17:03 1 tab ONETIME ONE Administration Departure - Departure Time of Disposition: 17:09 Disposition: Home, Self-Care 01 Condition: Fair Clinical Impression: Pain, dental, Dental infection - Discharge Information Referrals: Mary Lou Lange NP [Primary Care Provider] - Forms: ED Department Discharge Additional Instructions: Clindamycin antibiotic 150 mg 4 times daily for 1 week or until gone, you can alternate Tylenol and ibuprofen or Tylenol and Aleve as needed for discomfort. Be sure to take ibuprofen or Aleve with food, never on an empty stomach. See dentist as soon as possible.
== END 2018-12-24 17:20 | disposition home or self-care (01) ==
LOC: JD.ED 16:05
DX: K04.7 Periapical abscess without sinus (principal); F17.210 Nicotine dependence, cigarettes, uncomplicated
CPT/HCPCS: 99282; A9270; 99283

== ENCOUNTER 2020-01-28 21:07 | Emergency (ER) | payer MEDICAID ==
[2020-01-28 21:21] VITALS: BP 130/83; PULSE 114
--- NOTE | 2020-01-28 22:08 | EDM.PDOC ---
ED HPI GENERAL MEDICAL PROBLEM - General Chief Complaint: ENT Problem Stated Complaint: SWOLLEN/PAINFUL TONSILS Time Seen by Provider: 01/28/20 21:51 Source of Information: Reports: Patient History Limitations: Reports: No Limitations - History of Present Illness INITIAL COMMENTS - FREE TEXT/NARRATIVE: Ms. Dee is a very pleasant 29-year-old woman who now presents the ED with a complaint of swollen tonsils and throat pain when she swallows, since this past 01/26/2020. She has not had a fever, although she states that she has had occasional chills. No recent cough, nausea, vomiting, or diarrhea. The patient states that she has a history of numerous episodes of tonsillitis, although she does not recall that she has been diagnosed with streptococcal pharyngitis, per se. The patient states that she just finished a 10-day course of Augmentin, prescribed for dental infection, yesterday. Here in the ED, the patient is found to be tachycardic at 114 bpm, otherwise, she is hemodynamically stable, afebrile, saturating 98% on room air. Other than her recent dental infection and current pharyngitis, the patient denies having a recent fever, chills, ear pain, nasal or sinus congestion, cough, dyspnea, chest pain, palpitations, nausea, vomiting, constipation, diarrhea, abdominal pain, urinary symptoms, recent weight gain or weight loss, recent bloody bowel movements or black bowel movements, recent joint aches, headaches, or rashes. The patient's PCP is Mary Lou Lange NP. She already received an influenza vaccine this season. 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 Throat Pain Score (Numeric/FACES): 9 - Related Data Allergies Allergy/AdvReac Type Severity Reaction Status Date / Time No Known Allergies Allergy Verified 01/28/20 21:21 Home Meds: Home Meds medroxyPROGESTERone [Depo-Provera Contraceptive] 1 dose INJECT ASDIRECTED 03/10/18 [History] methIMAzole [Methimazole] 2.5 mg PO DAILY 01/28/20 [History] Past Medical History Psychiatric History: Reports: Depression (untreated) Endocrine/Metabolic History: Reports: Hyperthyroidism (Grave disease) - Past Surgical History HEENT Surgical History: Reports: Oral Surgery (dental extractions) GI Surgical History: Reports: Hernia, Abdominal Social & Family History - Tobacco Use Tobacco Use Status *Q: Current Every Day Tobacco User Years of Tobacco use: 15 Packs/Tins Daily: 0.3 Packs/Tins Daily Comment: Down from / ppd - Caffeine Use Caffeine Use: Reports: Coffee, Energy Drinks - Alcohol Use Alcohol Use History: Yes Alcohol Use Frequency: Socially - Recreational Drug Use Recreational Drug Use: Yes Drug Use in Last 12 Months: No Recreational Drug Type: Reports: Marijuana/Hashish (last smoked 2018) - Living Situation & Occupation Living situation: Reports: Single, with Family Occupation: Employed ([employer]) ED ROS ENT - Review of Systems Review Of Systems: Comprehensive ROS is negative, except as noted in HPI. ED EXAM, ENT - Physical Exam Exam: See Below Exam Limited By: No Limitations General Appearance: Alert, WD/WN, No Apparent Distress Eye Exam: Bilateral Eye: EOMI, Normal Inspection Ears: Normal External Exam, Normal Canal, Hearing Grossly Normal, Normal TMs Nose: Normal Inspection, Normal Mucousa, No Blood Mouth/Throat: Normal Gums, Normal Lips, Normal Teeth, Other (Anatomically large tonsils that are touching midline, although there is no threat to the patency of the airway. Mildly increased erythema. Small areas of whiteness noticed on the tonsils, that is likely foodstuff. No exudates seen.) Head: Atraumatic, Normocephalic Neck: Normal Inspection, Supple, Full Range of Motion, Tender Lateral (bilateral). No: Lymphadenopathy (L), Lymphadenopathy (R) Course - Vital Signs Last Recorded V/S: Last Vital Signs Temp 36.4 C 01/28/20 21:16 Pulse 114 H 01/28/20 21:16 Resp 16 01/28/20 21:16 BP 130/83 01/28/20 21:16 Pulse Ox 98 01/28/20 21:16 - Orders/Labs/Meds Meds: Medications Discontinued Medications Generic Name Dose Route Start Last Admin Trade Name Freq PRN Reason Stop Dose Admin Penicillin G Benzathine 1.2 millunits 01/28/20 22:47 01/28/20 23:02 Bicillin L-A IM 01/28/20 22:48 1.2 millunits ONETIME STA Administration - Re-Assessments/Exams Free Text/Narrative Re-Assessment/Exam: 01/28/20 22:04 As above, the patient has had swollen tonsils and a sore throat when swallowing for the past 2 days. No recent fever, although she has had some chills. On examination, she has anatomically large tonsils that are actually touching each other, although there is no threat to the patient's airway. She has a tiny amount of some white material on the tonsils which is likely foodstuff; I do not see an exudate. The tonsils are red, but not overly so. I swabbed her tonsils for a rapid strep test. 01/28/20 22:50 The patient's rapid strep test returned positive. I discussed the various treatment options, including IM long-acting penicillin G benzathine, to which she agreed. I will discharge her home with the recommendation that she follow-up with her PCP in a couple of weeks, when she is feeling better, to get retested for strep throat; if she is still positive, then she is likely a carrier, and should be referred to an ENT for tonsille ctomy. Departure - Departure Time of Disposition: 22:51 Disposition: Home, Self-Care 01 Condition: Good Clinical Impression: Streptococcal pharyngitis - Discharge Information *PRESCRIPTION DRUG MONITORING PROGRAM REVIEWED*: Not Applicable *COPY OF PRESCRIPTION DRUG MONITORING REPORT IN PATIENT MARTIR: Not Applicable Instructions: Strep Throat, Adult, [id number], Pharyngitis, [id number] Referrals: Mary Lou Lange NP [Primary Care Provider] - Forms: ED Department Discharge Additional Instructions: You were seen in the emergency room for 2 days of swollen tonsils and a sore throat when you swallow. Work-up in the ER included a rapid strep test, which returned positive, indicating that you have strep throat. You were treated with long-acting injectable penicillin. No further treatment is necessary. You may take [id number] ibuprofen as needed for discomfort. Warm salt water gargles and Chloraseptic may help, as well. We recommend that you follow-up with your PCP, Mary Lou Lange NP, in about 2 weeks, when you are feeling all better, to be retested for strep throat. If your strep test returns positive, that would indicate that you are likely a strep carrier, and you should be referred to an ENT for possible tonsillectomy. If any other problems, please do not hesitate to return to the ER. Sepsis Event Note (ED) - Evaluation Sepsis Screening Result: No Definite Risk - Focused Exam Vital Signs: Vital Signs Temp Pulse Resp BP Pulse Ox 01/28/20 21:16 36.4 C 114 H 16 130/83 98
[2020-01-28] MEDS ORDERED: Penicillin G Benzathine 1,200,000 Units/2 ML Syringe IM STA (22:47)
== END 2020-01-28 23:06 | disposition home or self-care (01) ==
LOC: JD.ED 21:07
DX: J02.0 Streptococcal pharyngitis (principal); F17.210 Nicotine dependence, cigarettes, uncomplicated
CPT/HCPCS: 87430; 96372; 99283; 99284; J0561

== ENCOUNTER 2020-11-02 02:08 | Emergency (ER) | payer MEDICAID ==
[2020-11-02 02:33] VITALS: BP 123/87; PULSE 118
[2020-11-02] MEDS ORDERED: Lidocaine 2% Jelly 5 ML Tube MUCMEM STA (03:16)
[2020-11-02] MEDS ORDERED: Aluminum Hydroxide/Magnesium Hydroxide/Simethicone Susp 30 ML Cup PO STA (03:16)
[2020-11-02] MEDS ORDERED: diphenhydrAMINE 12.5 MG/5 ML Liquid 5 ML UD Cup PO STA (03:17)
[2020-11-02] MEDS ORDERED: Lidocaine 2% Viscous Solution 15 ML Cup ONE (03:21)
--- NOTE | 2020-11-02 03:24 | EDM.PDOC ---
ED HPI GENERAL MEDICAL PROBLEM - General Chief Complaint: ENT Problem Stated Complaint: ENT PROBLEM-THROAT/TONGUE COMPLAINT Time Seen by Provider: 11/02/20 02:27 Source of Information: Reports: Patient History Limitations: Reports: No Limitations - History of Present Illness INITIAL COMMENTS - FREE TEXT/NARRATIVE: Ms. Francis is a very pleasant 29 year old woman who now presents to the ED stating that she developed nasal congestion on 10/28/2020, followed by a cough productive of a scant amount of green sputum of 10/29/2020, followed by pain to the underside of her tongue on 10/31/2020. No recent fever. Her mouth pain is making it difficult to eat. No prior similar symptoms. Here in the ED, the patient was initially tachycardic at 118 bpm, otherwise, she is hemodynamically stable, afebrile, saturating 96% on room air. SHe appears to be somewhat anxious, but is in no acute distress. Prior to last Tuesday, the patient denies having a recent fever, chills, sore throat, ear pain, nasal or sinus congestion, cough, dyspnea, chest pain, palpitations, nausea, vomiting, constipation, diarrhea, abdominal pain, urinary symptoms, recent weight gain or weight loss, recent bloody bowel movements or black bowel movements, recent joint aches, headaches, or rashes. The patient's PCP is Laurel Cole NP, although she also sees Mary Lou Lange NP. Oral/Mouth Pain Score (Numeric/FACES): 8 - Related Data Allergies Allergy/AdvReac Type Severity Reaction Status Date / Time No Known Allergies Allergy Verified 11/02/20 02:33 Home Meds: Home Meds medroxyPROGESTERone [Depo-Provera Contraceptive] 1 dose INJECT ASDIRECTED 03/10/18 [History] methIMAzole [Methimazole] 2.5 mg PO DAILY 01/28/20 [History] Venlafaxine [Effexor] 37.5 mg PO DAILY 11/02/20 [History] Past Medical History Gastrointestinal History: Reports: GERD Psychiatric History: Reports: Anxiety, Depression Endocrine/Metabolic History: Reports: Hyperthyroidism (Grave disease) - Infectious Disease History Infectious Disease History: Reports: Novel Coronavirus - Past Surgical History HEENT Surgical History: Reports: Oral Surgery GI Surgical History: Reports: Hernia, Abdominal Female Surgical History: Reports: D&C (x 1) Social & Family History - Tobacco Use Tobacco Use Status *Q: Current Every Day Tobacco User Years of Tobacco use: 16 Packs/Tins Daily: 0.5 Tobacco Use Comment: Started smoking 2004 - Caffeine Use Caffeine Use: Reports: Soda - Alcohol Use Alcohol Use History: Yes Alcohol Use Frequency: Daily ("a lot") - Recreational Drug Use Recreational Drug Use: No - Living Situation & Occupation Living situation: Reports: , with Spouse, with Family (2 kids) Occupation: Employed ([employer]) ED ROS ENT - Review of Systems Review Of Systems: Comprehensive ROS is negative, except as noted in HPI. ED EXAM, ENT - Physical Exam Exam: See Below Exam Limited By: No Limitations General Appearance: Alert, WD/WN, No Apparent Distress Eye Exam: Bilateral Eye: EOMI, Normal Inspection Ears: Normal External Exam, Normal Canal, Hearing Grossly Normal, Normal TMs Nose: Normal Inspection, Normal Mucousa, No Blood Mouth/Throat: Other (Prominent aphthous ulcer to the underside of the right side of the patient's tongue. Less prominent lesion to the underside of the left side of patient's tongue. No other oral lesions seen.) Head: Atraumatic, Normocephalic Neck: Normal Inspection, Supple, Non-Tender, Full Range of Motion. No: Lymphadenopathy (L), Lymphadenopathy (R) Course - Vital Signs Last Recorded V/S: Last Vital Signs Temp 36.1 C 11/02/20 02:22 Pulse 118 H 11/02/20 02:22 Resp 13 11/02/20 02:22 BP 123/87 11/02/20 02:22 Pulse Ox 96 11/02/20 02:22 - Orders/Labs/Meds Meds: Medications Discontinued Medications Generic Name Dose Route Start Last Admin Trade Name Freq PRN Reason Stop Dose Admin Al Hydroxide/Mg Hydroxide 10 ml 11/02/20 03:16 11/02/20 03:28 Aluminum Hydroxide/Magnesium Hydroxide/Simethicone Susp 30 Ml Cup PO 11/02/20 03:17 10 ml ONETIME STA Administration Diphenhydramine HCl 10 mg 11/02/20 03:17 11/02/20 03:28 Diphenhydramine 12.5 Mg/5 Ml Liquid 5 Ml Ud Cup PO 11/02/20 03:18 10 mg ONETIME STA Administration Lidocaine HCl 10 ml 11/02/20 03:16 Lidocaine 2% Jelly 5 Ml Tube MUCMEM 11/02/20 03:17 ONETIME STA Lidocaine HCl Confirm 11/02/20 03:21 11/02/20 03:28 Lidocaine 2% Viscous Solution 15 Ml Cup Administered 11/02/20 03:22 15 ml Dose Administration 15 ml .ROUTE .[facility] - Re-Assessments/Exams Free Text/Narrative Re-Assessment/Exam: 11/02/20 03:18 The patient has aphthous stomatitis, her first outbreak. I have ordered some viscous lidocaine 2%, Maalox, and diphenhydramine solution in equal parts, to make up some "magic mouthwash" that the patient can swish and spit. I will provide her a prescription for the same that she can fill later today. Departure - Departure Time of Disposition: 03:19 Disposition: Home, Self-Care 01 Condition: Good Clinical Impression: Aphthous stomatitis - Discharge Information *PRESCRIPTION DRUG MONITORING PROGRAM REVIEWED*: Not Applicable *COPY OF PRESCRIPTION DRUG MONITORING REPORT IN PATIENT MARTIR: Not Applicable Instructions: Oral Ulcers Referrals: Laurel Cole NP [Primary Care Provider] - Mary Lou Lange NP [Ordering Only Provider] - Forms: ED Department Discharge Additional Instructions: You were seen in the emergency room after developing a painful tongue on Tuesday. On examination, you are suffering from aphthous stomatitis = painful oral lesions due to a recurring virus. You have been started on some Magic mouthwash, and you were provided with a prescription for the same. Swish and spit 5 mL of Magic mouthwash up to every 1-2 hours, as needed for oral pain. As discussed, there is no cure for aphthous stomatitis, however, outbreaks become less frequent and less painful over the years as you get older. As discussed, because it is due to a virus, it is possible to infect someone else by testing them when you are having an outbreak. If any other problems, please do not hesitate to return to the ER. Sepsis Event Note (ED) - Evaluation Sepsis Screening Result: Possible Sepsis Risk
== END 2020-11-02 03:28 | disposition home or self-care (01) ==
LOC: JD.ED 02:08
DX: K12.0 Recurrent oral aphthae (principal); Z72.0 Tobacco use; Z79.899 Other long term (current) drug therapy; Z86.16 Personal history of COVID-19
CPT/HCPCS: 99283; A9270

== ENCOUNTER 2021-10-25 18:45 | Emergency (ER) | payer MEDICAID | END 2021-10-25 20:33 | LOC: JD.ED 18:45 | DX: Z53.21 Procedure and treatment not carried out due to patient leaving prior to being seen by health care provider (principal) ==

== ENCOUNTER 2021-10-25 23:45 | Emergency (ER) | payer MEDICAID ==
[2021-10-26 00:15] VITALS: BP 126/89; PULSE 104
[2021-10-26] MEDS ORDERED: Sodium Chloride 0.9% 10 ML Syringe FLUSH PRN (00:27)
[2021-10-26] MEDS ORDERED: HYDROmorphone 0.5 MG/0.5 ML Syringe IVPUSH ONE (00:28)
== END 2021-10-26 02:10 | disposition home or self-care (01) ==
LOC: JD.ED 23:45
DX: M54.50 Low back pain, unspecified (principal); Z87.891 Personal history of nicotine dependence; Z86.16 Personal history of COVID-19
CPT/HCPCS: 36415; 80053; 81003; 84702; 85025; 96374; 99284; J1170; J3490; 99283

== ENCOUNTER 2022-05-20 07:15 | Inpatient (IN) | payer MEDICAID ==
[~2022-05-20 07:15] MED LIST: Morphine PF 1 MG/ML Amp ONE; ceFAZolin 2 GM Vial ONE; fentaNYL 100 MCG/2 ML SDV ONE
[2022-05-20] MEDS ORDERED: fentaNYL 100 MCG/2 ML SDV EPIDUR PRN (07:31)
[2022-05-20] MEDS ORDERED: diphenhydrAMINE 50 MG/ML SDV IVPUSH PRN (07:31)
[2022-05-20] MEDS ORDERED: Bupivacaine/fentaNYL/NS 100 ML Bag EPIDUR PRN (07:31)
[2022-05-20] MEDS ORDERED: ePHEDrine 50 MG/ML SDV IVPUSH PRN (07:31)
[2022-05-20] MEDS ORDERED: Acetaminophen 325 MG Tab PO PRN (07:59)
[2022-05-20] MEDS ORDERED: Sodium Chloride 0.9% 10 ML Syringe FLUSH PRN (07:59)
[2022-05-20] MEDS ORDERED: Nalbuphine 10 MG/0.5 ML Syringe IVPUSH PRN (07:59)
[2022-05-20] MEDS ORDERED: Oxytocin/Lactated Ringers 10 UNIT/1,000 ML BAG IV SCH ×3 (08:00→18:03)
[2022-05-20] MEDS ORDERED: Lactated Ringers 1,000 ML IV SCH (08:00)
[2022-05-20] MEDS ORDERED: Sodium Chloride 0.9% 10 ML Syringe FLUSH SCH (09:00)
[2022-05-20] MEDS: Nicotine 14 MG/24 Hr Patch TRDERM SCH (11:24)
[2022-05-20] MEDS ORDERED: Hydrocortisone Acetate 25 MG Supp RECTAL PRN (18:03)
[2022-05-20] MEDS ORDERED: Witch Hazel Medicated Pads 40/Jar TOP PRN (18:03)
[2022-05-20] MEDS ORDERED: Benzocaine/Menthol 20%-0.5% Spray 78 GM Cannister TOP PRN (18:03)
[2022-05-20] MEDS ORDERED: Misoprostol 200 MCG Tab RECTAL PRN (18:03)
[2022-05-20] MEDS ORDERED: Magnesium Hydroxide 400 MG/5 ML Susp 30 ML Cup PO PRN (18:03)
[2022-05-20] MEDS ORDERED: Methylergonovine 0.2 MG/ML SDV IM SCH ×2 (19:14→19:45)
[2022-05-20] MEDS ORDERED: Methylergonovine 0.2 MG/1 ML Amp ONE (19:16)
[2022-05-20] MEDS: Ibuprofen 600 MG Tab PO PRN (21:21)
[2022-05-20] MEDS: Docusate Sodium 100 MG Cap PO PRN (21:21)
[2022-05-20] MEDS: Acetaminophen 325 MG Tab PO PRN (21:21)
[2022-05-21] MEDS: Nicotine 14 MG/24 Hr Patch TRDERM SCH (09:43)
[2022-05-21] MEDS: Prenatal Multivitamin with Calcium/Folic Acid/Iron Tab PO SCH (09:53)
[2022-05-21] MEDS: Nicotine 21 MG/24 Hr Patch TRDERM SCH (09:53)
[2022-05-21] MEDS: Acetaminophen 325 MG Tab PO PRN ×2 (09:59→21:19)
[2022-05-21] MEDS: Docusate Sodium 100 MG Cap PO PRN (09:59)
[2022-05-21] MEDS: Ibuprofen 600 MG Tab PO PRN ×2 (10:00→21:19)
[2022-05-22 09:50] VITALS: BP 116/69; PULSE 99
[2022-05-22] MEDS: Nicotine 21 MG/24 Hr Patch TRDERM SCH (11:20)
[2022-05-22] MEDS: Prenatal Multivitamin with Calcium/Folic Acid/Iron Tab PO SCH (11:20)
== END 2022-05-22 10:10 | disposition home or self-care (01) | DRG 806 ==
LOC: JD.OB 07:15 → OBSVTOIN 17:20 → JD.OB 17:20
PROVIDERS: ADMIT Obstetrics & Gynecology; ATTEND Obstetrics & Gynecology
PROC: 00HU33Z Insertion of Infusion Device into Spinal Canal, Percutaneous Approach (ICD-10-PCS; principal; 2022-05-20)
PROC: 3E0R3BZ Introduction of Anesthetic Agent into Spinal Canal, Percutaneous Approach (ICD-10-PCS; principal; 2022-05-20)
PROC: 0HQ9XZZ Repair Perineum Skin, External Approach (ICD-10-PCS; principal; 2022-05-20)
PROC: 10E0XZZ Delivery of Products of Conception, External Approach (ICD-10-PCS; principal; 2022-05-20)
PROC: 10907ZC Drainage of Amniotic Fluid, Therapeutic from Products of Conception, Via Natural or Artificial Opening (ICD-10-PCS; principal; 2022-05-20)
PROC: 3E033VJ Introduction of Other Hormone into Peripheral Vein, Percutaneous Approach (ICD-10-PCS; principal; 2022-05-20)
DX: O99.324 Drug use complicating childbirth (principal); D62 Acute posthemorrhagic anemia; Z37.0 Single live birth; O72.1 Other immediate postpartum hemorrhage; O99.334 Smoking (tobacco) complicating childbirth; F17.210 Nicotine dependence, cigarettes, uncomplicated; F11.10 Opioid abuse, uncomplicated; O70.0 First degree perineal laceration during delivery; O69.81X0 Labor and delivery complicated by cord around neck, without compression, not applicable or unspecified; O77.0 Labor and delivery complicated by meconium in amniotic fluid; O90.81 Anemia of the puerperium; Z3A.39 39 weeks gestation of pregnancy
CPT/HCPCS: 01967; 36415; 51701; 51702; 59025; 59409; 80306; 85025; 85384; 85610; 85730; 86592; 86735; 86762; 86765; 86850; 86900; 86901; A9270-GY; J0690; J2210; J2274; J2590; J3010; J3490; J7120

== ENCOUNTER 2022-06-18 23:26 | Emergency (ER) | payer MEDICAID ==
[2022-06-18 23:39] VITALS: BP 152/105; PULSE 112
[2022-06-19] MEDS ORDERED: Lidocaine 1% 10 ML MDV INJECT ONE (00:28)
[2022-06-19] MEDS ORDERED: Bupivacaine 0.5%/EPINEPHrine 1:200,000 30 ML SDV INJECT ONE (00:28)
[2022-06-19] MEDS ORDERED: Penicillin G Benzathine 1,200,000 Units/2 ML Syringe IM STA (00:29)
[2022-06-19] MEDS ORDERED: Lidocaine 2% Viscous Solution 15 ML UD PO STA (00:31)
== END 2022-06-19 01:42 | disposition home or self-care (01) ==
LOC: JD.ED 23:26
DX: K04.7 Periapical abscess without sinus (principal); K02.9 Dental caries, unspecified; K21.9 Gastro-esophageal reflux disease without esophagitis; F17.210 Nicotine dependence, cigarettes, uncomplicated; Z86.16 Personal history of COVID-19; Z79.899 Other long term (current) drug therapy
CPT/HCPCS: 64400; 96372; 99282; A9270; J0561; J3490; 99283

== ENCOUNTER 2022-06-20 14:58 | Emergency (ER) | payer MEDICAID ==
[2022-06-20] MEDS ORDERED: Ketorolac 30 MG/ML SDV IM ONE (15:23)
[2022-06-20] MEDS ORDERED: HYDROmorphone 0.5 MG/0.5 ML Syringe IM ONE (15:23)
[2022-06-20 17:41] VITALS: BP 140/88; PULSE 85
== END 2022-06-20 16:20 | disposition home or self-care (01) ==
LOC: JD.ED 14:58
DX: K08.89 Other specified disorders of teeth and supporting structures (principal); K21.9 Gastro-esophageal reflux disease without esophagitis; Z79.899 Other long term (current) drug therapy; Z86.16 Personal history of COVID-19
CPT/HCPCS: 96372; 99282; J1170; J1885; 99283

== ENCOUNTER 2022-06-27 18:56 | Emergency (ER) | payer MEDICAID ==
[2022-06-27] MEDS ORDERED: Acetaminophen/oxyCODONE 325-5 MG Tab PO ONE (19:29)
[2022-06-27] MEDS ORDERED: Amoxicillin/Clavulanate K 875-125 MG Tab PO ONE (19:29)
[2022-06-27] MEDS ORDERED: Lidocaine 1% 10 ML MDV INJECT ONE (19:50)
[2022-06-27] MEDS ORDERED: Lidocaine 2% Viscous Solution 15 ML UD PO ONE (21:07)
[2022-06-27 21:27] VITALS: BP 134/87; PULSE 96
== END 2022-06-27 21:15 | disposition home or self-care (01) ==
LOC: JD.ED 18:56
DX: K08.89 Other specified disorders of teeth and supporting structures (principal); K21.9 Gastro-esophageal reflux disease without esophagitis; Z79.899 Other long term (current) drug therapy; Z86.16 Personal history of COVID-19; Z72.0 Tobacco use
CPT/HCPCS: 99282; A9270; 99283; J3490

== ENCOUNTER 2022-06-29 16:01 | Emergency (ER) | payer MEDICAID ==
[2022-06-29 16:13] VITALS: BP 130/91; PULSE 104
[2022-06-29] MEDS ORDERED: Bupivacaine 0.5%/EPINEPHrine 1:200,000 30 ML SDV INJECT ONE (18:14)
== END 2022-06-29 18:55 | disposition home or self-care (01) ==
LOC: JD.ED 16:01
DX: K08.89 Other specified disorders of teeth and supporting structures (principal); K21.9 Gastro-esophageal reflux disease without esophagitis; E05.90 Thyrotoxicosis, unspecified without thyrotoxic crisis or storm; F17.210 Nicotine dependence, cigarettes, uncomplicated; Z86.16 Personal history of COVID-19; Z79.899 Other long term (current) drug therapy
CPT/HCPCS: 99282; 99283

== ENCOUNTER 2024-11-23 05:57 | Emergency (ER) | payer MEDICAID ==
[2024-11-23] MEDS: Acetaminophen/HYDROcodone 325-5 MG Tab PO ONE (06:28)
[2024-11-23 08:35] VITALS: BP 130/101; PULSE 100
== END 2024-11-23 07:50 | disposition home or self-care (01) ==
LOC: JD.ED 05:57
DX: S92.255A Nondisplaced fracture of navicular [scaphoid] of left foot, initial encounter for closed fracture (principal); K21.9 Gastro-esophageal reflux disease without esophagitis; Z79.899 Other long term (current) drug therapy; Z86.16 Personal history of COVID-19; W10.8XXA Fall (on) (from) other stairs and steps, initial encounter; Y93.89 Activity, other specified
CPT/HCPCS: 73630; 99283; A9270; 99284